=== PATIENT | male | born 1930 | race Caucasian/White ===

== ENCOUNTER 2016-07-10 00:32 | Observation (INO) | payer BC ==
[2016-07-10 00:45] VITALS: BMI 24.2
[2016-07-10] MEDS ORDERED: SUCRALFATE 1 GM TABLET (FP) PO ONE (01:04)
[2016-07-10] MEDS ORDERED: PANTOPRAZOLE SODIUM 40 MG in SODIUM CHLORIDE 100 ML IVPB ONE (01:04)
[2016-07-10] MEDS ORDERED: MAG HYDROX/AL HYDROX/SIMETH 30 ML UNIT-DOSE CUP PO ONE (01:04)
[2016-07-10] MEDS ORDERED: ASPIRIN 81 MG CHEWABLE TABLETS PO ONE (01:05)
--- NOTE | 2016-07-10 01:20 | PDOC ---
History of Present Illness - General History Source: Patient, Old Records Exam Limitations: No Limitations - History of Present Illness Initial Comments: 07/10/16 01:35 The patient is an 85 year old male, with a significant past medical history of HTN, hyperlipidemia, GERD, TIA, BPH, spinal stenosis, Parkinsons disease, mild dementia and recent falls, who presents to the emergency department with chest discomfort since approximately 11PM tonight. The patient states that he went to bed as usual but woke up around 11PM with what he describes as burning sensation in his chest. The patient reports taking Tums which usually gives him relief. However, when his symptoms did not subside he decided to visit the ED for evaluation. The patient denies fever, chills or shortness of breath. The patient denies nausea, vomiting or diarrhea. Allergies: Penicillin. Past Surgical History: Cholecystectomy, Hernia Repair. Social History: Former smoker (quit 15 years ago). Denies alcohol or drug use. PCP: Dr. Be <Lana Salas - Last Filed: 07/10/16 02:16> - General History Source: Patient, Old Records Exam Limitations: No Limitations <Carmelo Veronica - Last Filed: 07/10/16 11:54> - General Chief Complaint: Chest Pain Stated Complaint: HEARTBURN Time Seen by Provider: 07/10/16 00:35 Past History <Lana Salas - Last Filed: 07/10/16 02:16> - Past Medical History Anemia: No Asthma: No Cancer: No Cardiac Disorders: No CVA: No COPD: No CHF: No Dementia: No Diabetes: No GI Disorders: Yes (GERD) Disorders: Yes (BPH) HTN: Yes Hypercholesterolemia: No Liver Disease: No Seizures: No Thyroid Disease: No - Surgical History Abdominal Surgery: Yes (HERNIA) Appendectomy: No Cardiac Surgery: No Cholecystectomy: Yes Lung Surgery: No Neurologic Surgery: No Orthopedic Surgery: No - Psycho/Social/Smoking Cessation Hx Anxiety: No Suicidal Ideation: No Smoking History: Never smoked Have you smoked in the past 12 months: No If you are a former smoker, when did you quit?: 15 years ago Information on smoking cessation initiated: No Hx Alcohol Use: No Drug/Substance Use Hx: No Substance Use Type: None <Carmelo Veronica - Last Filed: 07/10/16 11:54> - Past Medical History Allergies/Adverse Reactions: Allergies Allergy/AdvReac Type Severity Reaction Status Date / Time Penicillins Allergy Severe Swelling Verified 07/10/16 00:43 Home Medications: Ambulatory Orders Ascorbate Calcium [Vitamin C] 1 mg PO DAILY 01/03/15 Ranitidine [Zantac -] 1 tab PO BID 01/03/15 Tamsulosin HCl 0.4 mg PO DAILY 01/03/15 Terazosin HCl 5 mg PO DAILY 01/03/15 Valsartan 160 mg PO DAILY 09/23/15 Cholecalciferol (Vitamin D3) [Vitamin D -] 0 unit PO WEEKLY 05/05/16 Acetaminophen [Tylenol .Regular Strength -] 650 mg PO Q6H PRN #0 tablet Carbidopa/Levodopa 25 [Sinemet 25/ -] 1 each PO TID #90 tablet 05/07/16 Review of Systems - Review of Systems Able to Perform ROS?: Yes Comments:: 07/10/16 01:33 GENERAL/CONSTITUTIONAL: No fever or chills. No weakness. HEAD, EYES, EARS, NOSE AND THROAT: No change in vision. No ear pain or discharge. No sore throat. CARDIOVASCULAR: +Chest discomfort. No shortness of breath. RESPIRATORY: No cough, wheezing, or hemoptysis. GASTROINTESTINAL: No nausea, vomiting, diarrhea or constipation. GENITOURINARY: No dysuria, frequency, or change in urination. MUSCULOSKELETAL: No joint or muscle swelling or pain. No neck or back pain. SKIN: No rash. NEUROLOGIC: No headache, vertigo, loss of consciousness, or change in strength/ sensation. ENDOCRINE: No increased thirst. No abnormal weight change. HEMATOLOGIC/LYMPHATIC: No anemia, easy bleeding, or history of blood clots. ALLERGIC/IMMUNOLOGIC: No hives or skin allergy. <Lana Salas - Last Filed: 07/10/16 02:16> *Physical Exam - Vital Signs Last Vital Signs Temp Pulse Resp BP Pulse Ox 97.2 F L 87 18 146/53 95 07/10/16 00:43 07/10/16 00:43 07/10/16 00:43 07/10/16 00:43 07/10/16 00:43 - Physical Exam Comments: 07/10/16 01:22 GENERAL: Awake, alert, and fully oriented, in no acute distress. HEAD: No signs of trauma. EYES: PERRLA, EOMI, sclera anicteric, conjunctiva clear. ENT: Auricles normal inspection, hearing grossly normal, nares patent, oropharynx clear without exudates. Moist mucosa. NECK: Normal ROM, supple, no lymphadenopathy, JVD, or masses. LUNGS: Breath sounds equal, clear to auscultation bilaterally. No wheezes, and no crackles. HEART: Regular rate and rhythm, normal S1 and S2, no murmurs, rubs or gallops. ABDOMEN: Soft, nontender, normoactive bowel sounds. No guarding, no rebound. No masses. EXTREMITIES: Normal range of motion, no edema. No clubbing or cyanosis. No cords, erythema, or tenderness. NEUROLOGICAL: Cranial nerves II through XII intact. Normal speech, gait is deferred. SKIN: Warm, dry, normal turgor, no rashes or lesions noted. <Lana Salas - Last Filed: 07/10/16 02:16> - Vital Signs Last Vital Signs Temp Pulse Resp BP Pulse Ox 97.2 F L 87 18 146/53 95 07/10/16 00:43 07/10/16 00:43 07/10/16 00:43 07/10/16 00:43 07/10/16 00:43 <Carmelo Veronica - Last Filed: 07/10/16 11:54> Heart Score/ECG Review - History History: Moderately suspicious - Electrocardiogram EKG: Non specific repolarization disturbance - Age Age: >/= 65 - Risk Factors Based on the list above the patient has:: >/=3 risk factors or Hx atherosclerotic disease - Troponin Troponin: </= normal limit - Score Heart Score - Total: 6 #1 07/10/16 11:[address] changes on the ECG. No acute ischemic changes. <Carmelo Veronica - Last Filed: 07/10/16 11:54> ED Treatment Course - LABORATORY CBC & Chemistry Diagram: 07/10/16 01:15 07/10/16 01:15 <Lana Salas - Last Filed: 07/10/16 02:16> - LABORATORY CBC & Chemistry Diagram: 07/10/16 01:15 07/10/16 01:15 - RADIOLOGY Radiology Studies Ordered: Category Date Time Status CHEST X-RAY PORTABLE* [RAD] Stat Radiology 07/10/16 00:56 Ordered <Carmelo Veronica - Last Filed: 07/10/16 11:54> Medical Decision Making - Medical Decision Making 07/10/16 02:[address] Ashley Zapata at 02:09. Referred to answering, awaiting callback. Dr. Zapata returned call at 02:16, case discussed. <Lana Salas - Last Filed: 07/10/16 02:16> - Medical Decision Making 07/10/16 01:20 A portion of this note was documented by scribe services under my direction. I have reviewed the details of the note, within reason, and agree with the documentation with the following case summary and management plan written by me. Patient treated in the ED. Nursing notes are reviewed and incorporated into the medical decision-making. Vital signs reviewed. Peripheral IV access obtained by the nurse, laboratory studies are drawn and sent, reviewed and interpreted by myself. 85 year old male with past medical history of acid reflux, hypertension, TIA, BPH, Parkinson's, dementia presents with chest discomfort. Patient reports that he ate a heavy dinner. Went to bed around 10:50 PM, patient developed an woke up with chest burning-like sensation but no sepsis shortness of breath. Denies nausea or vomiting. He reports that he typically reassess reflux but typically resolved with Tums and Zantac. However, it did not resolve it did not improve. He was concerned for cardiac condition and came to the ED. I agree, we should rule out myocardial infarction and acute coronary syndrome. We'll give an aspirin but trial GERD medications. Chest x-ray, EKG, labs include troponin and admit the patient to the hospital for further lotion. 07/10/16 02:18 CBC, BMP 07/10/16 01:15 07/10/16 01:15 CMP Sodium 134 mmol/L (136-145) L 07/10/16 01:15 Potassium 4.4 mmol/L (3.5-5.1) 07/10/16 01:15 Chloride 99 mmol/L (98-107) 07/10/16 01:15 Carbon Dioxide 25 mmol/L (21-32) 07/10/16 01:15 Anion Gap 10 (8-16) 07/10/16 01:15 BUN 14 mg/dL (7-18) 07/10/16 01:15 Creatinine 1.1 mg/dL (0.7-1.3) D 07/10/16 01:15 Creat Clearance w eGFR > 60 (>60) 07/10/16 01:15 Random Glucose 154 mg/dL (74-106) H D 07/10/16 01:15 Calcium 8.2 mg/dL (8.5-10.1) L 07/10/16 01:15 Magnesium 2.0 mg/dL (1.8-2.4) 07/10/16 01:15 Total Bilirubin 0.3 mg/dL (0.2-1.0) D 07/10/16 01:15 AST 22 U/L (15-37) D 07/10/16 01:15 ALT 15 U/L (12-78) D 07/10/16 01:15 Alkaline Phosphatase 75 U/L (45-117) 07/10/16 01:15 Creatine Kinase 245 IU/L (39-308) D 07/10/16 01:15 Troponin I < 0.02 ng/ml (0.00-0.05) 07/10/16 01:15 B-Natriuretic Peptide 164.72 pg/ml (5-450) 07/10/16 01:15 Total Protein 5.9 g/dl (6.4-8.2) L 07/10/16 01:15 Albumin 3.1 g/dl (3.4-5.0) L 07/10/16 01:15 Lipase 55 U/L (73-393) L 07/10/16 01:15 Trop negative. Chest rxay pending. Case discussed with Dr. Zapata, who accepts the patient for tele obs. Requests Dr. Juárez for cards. Case discussed in detail with admitting physician including history, physical exam and ancillary studies. Admitting physician has assumed care for the patient, will follow all pending diagnostics and will complete the evaluation and treatment. <Carmelo Veronica - Last Filed: 07/10/16 11:54> *DC/Admit/Observation/Transfer - Attestations Scribe Attestion: 07/10/16 01:21 Documentation prepared by Lana Salas, acting as medical affairs specialist for Carmelo Veronica MD. <Lana Salas - Last Filed: 07/10/16 02:16> - Discharge Dispostion Admit: Yes <Carmelo Veronica - Last Filed: 07/10/16 11:54> Diagnosis at time of Disposition: Chest pain Qualifiers: Chest pain type: unspecified Qualified Code(s): R07.9 - Chest pain, unspecified
[2016-07-10 01:29] LABS: BASOPHIL 0.7 % (0-2.0); EOSINOPHIL 3.5 % (0-4.5); MCH 30.3 pg (25.7-33.7); MCHC 33.7 g/dl (32.0-35.9); MEAN CELL VOLUME 89.8 fl (80-96); MEAN PLT VOLUME 8.5 fl (7.5-11.1); NEUTROPHILS 65.9 % (42.8-82.8); PLATELET COUNT 205 K/MM3 (134-434); RDW 15.1 % (11.9-15.9); WHITE BLOOD COUNT 7.7 K/mm3 (4.0-10.0)
[2016-07-10] MEDS ORDERED: SUCRALFATE 1 GM TABLET (FP) ONE (01:31)
[2016-07-10] MEDS ORDERED: PANTOPRAZOLE SODIUM 100 ML IVPB ONE ×2 (01:31→01:32)
[2016-07-10] MEDS ORDERED: ASPIRIN 81 MG CHEWABLE TABLETS ONE (01:31)
[2016-07-10] MEDS ORDERED: MAG HYDROX/AL HYDROX/SIMETH 30 ML UNIT-DOSE CUP ONE (01:31)
[2016-07-10 01:46] LABS: INR 1.01 (0.82-1.09); PROTHROMBIN TIME (PATIENT) 11.1 SEC (9.98-11.88)
[2016-07-10 01:49] LABS: ACTIVATED PTT 27.9 SECONDS (26.9-34.4)
[2016-07-10 01:55] LABS: ALBUMIN 3.1 g/dl (3.4-5.0); ANION GAP 10 (8-16); BILIRUBIN,TOTAL 0.3 mg/dL (0.2-1.0); CALCIUM 8.2 mg/dL (8.5-10.1); CO2 25 mmol/L (21-32); CREATININE 1.1 mg/dL (0.7-1.3); GLUCOSE,RANDOM 154 mg/dL (74-106); SGOT/AST 22 U/L (15-37); SGPT/ALT 15 U/L (12-78); TOT PROT 5.9 g/dl (6.4-8.2)
[2016-07-10 01:59] LABS: ALK PHOS 75 U/L (45-117); TROPONIN I < 0.02 ng/ml (0.00-0.05)
[2016-07-10 09:03] LABS: TROPONIN I < 0.02 ng/ml (0.00-0.05)
[2016-07-10] MEDS ORDERED: ACETAMINOPHEN 325 MG TABLET (FP) PO PRN (11:08)
--- NOTE | 2016-07-10 11:52 | CONSULT ---
Consult Consult Specialty:: Cardiology (Dr. Juárez) Reason for Consultation:: Chest pain - History of Present Illness Chief Complaint: Chest pain History of Present Illness: 85 year old male with known history of acid reflux. Has hypertension, TIA (with HANNAH carotid stenosis), BPH, Parkinson's dementia. Now presents with chest discomfort. Patient reports that he ate a "heavy dinner". Went to bed around 10:50 PM (2 hours after eating) and developed chest burning located in mid sternal area. Denies nausea or vomiting. No prior h/o exertional symptoms of shortness of breath or chest pain. He reports that he typically reassess reflux but typically resolved with Tums and Zantac. However, he states that he did not take this because of concern for developing an "ulcer". He has a h/o spinal stenosis Was seen and evaluated by Dr. Juárez in 04/2016 after fall. 09/2015 carotid u/s (mod atherosclerotic disease 60-79% HANNAH. Had inpt eval by vascular surgery, not thought to need intervention. 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 Cardio/Vascular: Yes: HTN, Other (peripheral arterial disease) Renal/: Yes: BPH - Alcohol/Substance Use Hx Alcohol Use: No History of Substance Use: reports: None - Smoking History Smoking history: Never smoked Have you smoked in the past 12 months: No If you are a former smoker, when did you quit?: 15 years ago Home Medications - Allergies Allergies/Adverse Reactions: Allergies Allergy/AdvReac Type Severity Reaction Status Date / Time Penicillins Allergy Severe Swelling Verified 07/10/16 00:43 - Home Medications Home Medications: Ambulatory Orders Ascorbate Calcium [Vitamin C] 1 mg PO DAILY 01/03/15 Ranitidine [Zantac -] 1 tab PO BID 01/03/15 Tamsulosin HCl 0.4 mg PO DAILY 01/03/15 Terazosin HCl 5 mg PO DAILY 01/03/15 Valsartan 160 mg PO DAILY 09/23/15 Cholecalciferol (Vitamin D3) [Vitamin D -] 0 unit PO WEEKLY 05/05/16 Acetaminophen [Tylenol .Regular Strength -] 650 mg PO Q6H PRN #0 tablet Carbidopa/Levodopa 25/100 [Sinemet 25/100 -] 1 each PO TID #90 tablet 05/07/16 Family Disease History - Family Disease History Family History: Unremarkable Review of Systems - Review of Systems Constitutional: reports: No Symptoms Eyes: reports: No Symptoms HENT: reports: No Symptoms Neck: reports: No Symptoms Cardiovascular: reports: Chest Pain Respiratory: reports: No Symptoms Gastrointestinal: reports: No Symptoms Genitourinary: reports: Frequency Musculoskeletal: reports: No Symptoms Integumentary: reports: No Symptoms Neurological: reports: Unsteady Gait Endocrine: reports: No Symptoms Physical Exam Vital Signs: Vital Signs Temperature 97.1 F L 07/10/16 06:44 Pulse Rate 72 07/10/16 06:44 Respiratory Rate 18 07/10/16 10:00 Blood Pressure 138/70 07/10/16 06:44 O2 Sat by Pulse Oximetry (%) 95 07/10/16 10:00 Constitutional: Yes: Well Nourished, No Distress Eyes: Yes: WNL HENT: Yes: WNL Neck: Yes: WNL Cardiovascular: Yes: Regular Rate and Rhythm Respiratory: Yes: WNL Gastrointestinal: Yes: WNL Extremities: Yes: WNL Edema: No Imaging - Results EKG: Image Reviewed (Tele: 07/10 at 08:06 HR to 120. ? Afib) Assessment/Plan 87 yo male with CV risk factors of HTN, HPL and (+) tobacco with Rt internal carotid stenosis. 1) Chest pain Now admitted with atypical chest pain. History sounds non-cardiac as he denies any exertional component and occured after eating large meal. In addition, he did not take his antacid (which he usually does). He had normal LV function on echo done in 04/2016 Cardiac enzymes are negative x 2 and ECG shows no ischemic changes Would resume his antacid regimen and consider GI evaluation Tele this AM showed rapid rate to 120s and looked like Afib. Would not anticoagulate him until GI eval done. Would start ASA 81mg daily 2) HTN Continue the valsartan for BP controll 3) Cartoid artery stenosis Continue ASA 81mg daily (which he should be on for the Rt KAM. I would also recommend he start Atorva 20mg daily for Carotid stenosis
[2016-07-10] MEDS: VALSARTAN 160 MG TABLET (UD) PO SCH (12:03)
[2016-07-10] MEDS: TAMSULOSIN HCL 0.4 MG CAP.ER.24H (FP) PO SCH (12:03)
[2016-07-10] MEDS: TERAZOSIN HCL 5 MG CAPSULE PO SCH ×2 (12:04→21:57)
--- NOTE | 2016-07-10 12:48 | HP ---
Admitting History and Physical - Primary Care Physician PCP: Antwon Be - Admission Chief Complaint: chest pain History of Present Illness: 85 year old male with past medical history of acid reflux, hypertension, TIA, BPH, Parkinson's, dementia presents with chest discomfort. Patient reports that he ate a heavy dinner. Went to bed around 10:50 PM, patient developed an woke up with chest burning-like sensation but no sepsis shortness of breath. Denies nausea or vomiting. He reports that he typically reassess reflux but typically resolved with Tums and Zantac. However, it did not resolve it did not improve. He was concerned for cardiac condition and came to the ED. 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 Cardiovascular: Yes: HTN, Other (peripheral arterial disease) Renal/: Yes: BPH - Smoking History Smoking history: Never smoked Have you smoked in the past 12 months: No If you are a former smoker, when did you quit?: 15 years ago - Alcohol/Substance Use Hx Alcohol Use: No History of Substance Use: reports: None Home Medications - Allergies Allergies/Adverse Reactions: Allergies Allergy/AdvReac Type Severity Reaction Status Date / Time Penicillins Allergy Severe Swelling Verified 07/10/16 00:43 - Home Medications Home Medications: Ambulatory Orders Ascorbate Calcium [Vitamin C] 1 mg PO DAILY 01/03/15 Ranitidine [Zantac -] 1 tab PO BID 01/03/15 Tamsulosin HCl 0.4 mg PO DAILY 01/03/15 Terazosin HCl 5 mg PO DAILY 01/03/15 Valsartan 160 mg PO DAILY 09/23/15 Cholecalciferol (Vitamin D3) [Vitamin D -] 0 unit PO WEEKLY 05/05/16 Acetaminophen [Tylenol .Regular Strength -] 650 mg PO Q6H PRN #0 tablet Carbidopa/Levodopa 25/100 [Sinemet 25/100 -] 1 each PO TID #90 tablet 05/07/16 Family Disease History - Family Disease History Family History: Unremarkable Review of Systems Unable to obtain ROS, reason: see [place] [employer] Physical Examination Vital Signs: Vital Signs Temperature 97.1 F L 02/25/17 06:44 Pulse Rate 72 07/10/16 06:44 Respiratory Rate 18 07/10/16 10:00 Blood Pressure 138/70 07/10/16 06:44 O2 Sat by Pulse Oximetry (%) 95 07/10/16 10:00 Constitutional: Yes: No Distress Eyes: Yes: Conjunctiva Clear Neck: Yes: Supple Cardiovascular: Yes: Regular Rate and Rhythm Respiratory: Yes: CTA Bilaterally Gastrointestinal: Yes: Normal Bowel Sounds, Soft Edema: No Neurological: Yes: Alert Psychiatric: Yes: Alert Imaging - Results Chest X-ray: Report Reviewed EKG: Report Reviewed Problem List - Problems (1) Chest pain Code(s): R07.9 - CHEST PAIN, UNSPECIFIED Qualifiers: Chest pain type: unspecified Qualified Code(s): R07.9 - Chest pain, unspecified (2) GERD (gastroesophageal reflux disease) Code(s): K21.9 - GASTRO-ESOPHAGEAL REFLUX DISEASE WITHOUT ESOPHAGITIS Qualifiers: Esophagitis presence: without esophagitis Qualified Code(s): K21.9 - Gastro-esophageal reflux disease without esophagitis (3) HTN (hypertension) Code(s): I10 - ESSENTIAL (PRIMARY) HYPERTENSION Qualifiers: Hypertension type: essential hypertension Qualified Code(s): I10 - Essential (primary) hypertension Assessment/Plan stable cardiology evaluation pending can be discharged today if cleared by cardiology Can do further work as out pt if indicated . will discuss with cardiology discussed with pts family/ pt-- agree with plan will follow
[2016-07-10] MEDS: CARBIDOPA/LEVODOPA 25/100 TABLET (FP) PO SCH ×2 (14:18→21:57)
[2016-07-10 16:13] LABS: TROPONIN I < 0.02 ng/ml (0.00-0.05)
--- NOTE | 2016-07-10 21:04 | EKG ---
Test Reason : Blood Pressure : / mmHG Vent. Rate : 087 BPM Atrial Rate : 087 BPM P-R Int : 178 ms QRS Dur : 090 ms QT Int : 344 ms P-R-T Axes : 050 -17 050 degrees QTc Int : 413 ms NORMAL SINUS RHYTHM NORMAL ECG WHEN COMPARED WITH ECG OF 05-MAY-2016 11:52, NO SIGNIFICANT CHANGE WAS FOUND Confirmed by JUANITA SÁNCHEZ MD ([id number]) on 07/10/2016 9:04:03 PM Referred By: Confirmed By:JUANITA SÁNCHEZ MD
[2016-07-10] MEDS ORDERED: PT OWN MED DRAWER 7, Y5N ONE (21:42)
[2016-07-10] MEDS: RANITIDINE HCL 150 MG TABLET (FP) PO SCH (21:57)
[2016-07-10] MEDS: ATORVASTATIN CA 20 MG TABLET (FP) PO SCH (21:57)
[2016-07-11] MEDS: CARBIDOPA/LEVODOPA 25/100 TABLET (FP) PO SCH ×3 (06:19→21:13)
[2016-07-11] MEDS: ASPIRIN COATED 81 MG TABLET.EC PO SCH (10:05)
[2016-07-11] MEDS: VALSARTAN 160 MG TABLET (UD) PO SCH (10:05)
[2016-07-11] MEDS: RANITIDINE HCL 150 MG TABLET (FP) PO SCH ×2 (10:05→21:13)
[2016-07-11] MEDS: TAMSULOSIN HCL 0.4 MG CAP.ER.24H (FP) PO SCH (10:06)
[2016-07-11] MEDS ORDERED: PT OWN MED DRAWER 7, Y5N ONE ×2 (10:07→10:08)
[2016-07-11] MEDS: TERAZOSIN HCL 5 MG CAPSULE PO SCH (10:09)
--- NOTE | 2016-07-11 11:20 | PN ---
Progress Note, Physician History of Present Illness: No complaints this AM Tele reviewed with no AFib, SR at 60s No chest pain Wants to go home but feels he will have trouble taking care of himself at home - Current Medication List Current Medications: Active Medications Acetaminophen (Tylenol -) 650 mg PO Q6H PRN PRN Reason: FEVER OR PAIN Aspirin (Ecotrin -) 81 mg PO DAILY [facility] Last Admin: 07/11/16 10:05 Dose: 81 mg Atorvastatin Calcium (Lipitor -) 20 mg PO HS [facility] Last Admin: 07/10/16 21:57 Dose: 20 mg Carbidopa/Levodopa (Sinemet /100 -) 1.5 each PO TID [facility] Last Admin: 07/11/16 06:19 Dose: 1.5 each Ranitidine HCl (Zantac -) 150 mg PO BID [facility] Last Admin: 07/11/16 10:05 Dose: 150 mg Tamsulosin HCl (Flomax -) 0.4 mg PO DAILY [facility] Last Admin: 07/11/16 10:06 Dose: 0.4 mg Terazosin HCl (Hytrin -) 5 mg PO DAILY [facility] Last Admin: 07/11/16 10:09 Dose: 5 mg Valsartan (Diovan -) 160 mg PO DAILY [facility] Last Admin: 07/11/16 10:05 Dose: 160 mg - Objective Vital Signs: Vital Signs Temperature 97.4 F L 07/11/16 08:16 Pulse Rate 76 07/11/16 08:16 Respiratory Rate 20 07/11/16 08:37 Blood Pressure 135/53 07/11/16 08:16 O2 Sat by Pulse Oximetry (%) 95 07/11/16 08:37 Constitutional: Yes: Well Nourished, No Distress Eyes: Yes: WNL HENT: Yes: WNL Neck: Yes: WNL, Supple, Trachea Midline Cardiovascular: Yes: WNL, Regular Rate and Rhythm Respiratory: Yes: CTA Bilaterally Gastrointestinal: Yes: WNL, Normal Bowel Sounds Musculoskeletal: Yes: WNL Extremities: Yes: WNL Edema: No Labs: INR, PTT INR 1.01 (0.82-1.09) 07/10/16 01:15 Assessment/Plan 87 yo male with CV risk factors of HTN, HPL and (+) tobacco with Rt internal carotid stenosis. 1) Chest pain Now admitted with atypical chest pain. History sounds non-cardiac as he denies any exertional component and occured after eating large meal. In addition, he did not take his antacid (which he usually does). He had normal LV function on echo done in 04/2016 Cardiac enzymes are negative x 2 and ECG shows no ischemic changes Would resume his antacid regimen and consider GI evaluation Tele this yesterday showed transient period of rapid rate to 120s and looked like Afib. Would not anticoagulate him until GI eval done. Would start ASA 81mg daily Continue tele - no afib overnight 07/10 2) HTN Continue the valsartan for BP controll 3) Cartoid artery stenosis Continue ASA 81mg daily (which he should be on for the Rt KAM). Continue Atorva 20mg daily for Carotid stenosis Dispo: Patient states he may need help at home
--- NOTE | 2016-07-11 14:04 | PN ---
Progress Note (short form) - Note Progress Note: Sitting in chair wants to go home . family at bedside cardiology consult noted/ appreciated denies cp denies abd pain Vital Signs Temp 97.4 F L 07/11/16 08:16 Pulse 76 07/11/16 08:16 Resp 20 07/11/16 08:37 BP 135/53 07/11/16 08:16 Pulse Ox 95 07/11/16 08:37 Intake & Output 07/10/16 07/11/16 07/11/16 23:59 11:59 23:59 Intake Total 350 350 400 Output Total 400 Balance 350 -50 400 Intake: Oral 350 350 400 Output: Urine 400 Void 400 Other: Voiding Method Toilet Toilet Toilet # Unmeasured Voids Void 1 3 Bowel Movement Yes Yes Yes Active Medications Acetaminophen (Tylenol -) 650 mg PO Q6H PRN PRN Reason: FEVER OR PAIN Aspirin (Ecotrin -) 81 mg PO DAILY [facility] Last Admin: 07/11/16 10:05 Dose: 81 mg Atorvastatin Calcium (Lipitor -) 20 mg PO [facility] Last Admin: 07/10/16 21:57 Dose: 20 mg Carbidopa/Levodopa (Sinemet 25/100 -) 1.5 each PO TID [facility] Last Admin: 07/11/16 06:19 Dose: 1.5 each Ranitidine HCl (Zantac -) 150 mg PO BID [facility] Last Admin: 07/11/16 10:05 Dose: 150 mg Tamsulosin HCl (Flomax -) 0.4 mg PO DAILY [facility] Last Admin: 07/11/16 10:06 Dose: 0.4 mg Terazosin HCl (Hytrin -) 5 mg PO DAILY [facility] Last Admin: 07/11/16 10:09 Dose: 5 mg Valsartan (Diovan -) 160 mg PO DAILY [facility] Last Admin: 07/11/16 10:05 Dose: 160 mg CBC, BMP 07/10/16 01:15 07/10/16 01:15 Physical Examination Constitutional: Yes: No Distress Eyes: Yes: Conjunctiva Clear Neck: Yes: Supple Cardiovascular: Yes: Regular Rate and Rhythm Respiratory: Yes: CTA Bilaterally Gastrointestinal: Yes: Normal Bowel Sounds, Soft Edema: No Neurological: Yes: Alert Psychiatric: Yes: Alert Assessment/Plan episode of afib ? monitor on tele gi consult as suggested by cardiology will follow discussed with pt / family Problem List - Problems (1) Chest pain Code(s): R07.9 - CHEST PAIN, UNSPECIFIED Qualifiers: Chest pain type: unspecified Qualified Code(s): R07.9 - Chest pain, unspecified (2) GERD (gastroesophageal reflux disease) Code(s): K21.9 - GASTRO-ESOPHAGEAL REFLUX DISEASE WITHOUT ESOPHAGITIS Qualifiers: Esophagitis presence: without esophagitis Qualified Code(s): K21.9 - Gastro-esophageal reflux disease without esophagitis (3) HTN (hypertension) Code(s): I10 - ESSENTIAL (PRIMARY) HYPERTENSION Qualifiers: Hypertension type: essential hypertension Qualified Code(s): I10 - Essential (primary) hypertension
[2016-07-11 14:53] LABS: BASOPHIL 0.9 % (0-2.0); EOSINOPHIL 2.7 % (0-4.5); MCH 30.4 pg (25.7-33.7); MEAN CELL VOLUME 89.4 fl (80-96); MEAN PLT VOLUME 8.4 fl (7.5-11.1); NEUTROPHILS 68.5 % (42.8-82.8); PLATELET COUNT 209 K/MM3 (134-434)
[2016-07-11 15:09] LABS: ALBUMIN 3.4 g/dl (3.4-5.0); ANION GAP 6 (8-16); BILIRUBIN,TOTAL 0.3 mg/dL (0.2-1.0); CALCIUM 8.5 mg/dL (8.5-10.1); CO2 29 mmol/L (21-32); CREATININE 0.9 mg/dL (0.7-1.3); GLUCOSE,RANDOM 121 mg/dL (74-106); SGOT/AST 19 U/L (15-37); SGPT/ALT 17 U/L (12-78); TOT PROT 6.3 g/dl (6.4-8.2)
[2016-07-11 15:10] LABS: ALK PHOS 81 U/L (45-117)
[2016-07-11] MEDS: ATORVASTATIN CA 20 MG TABLET (FP) PO SCH (21:13)
[2016-07-12] MEDS: CARBIDOPA/LEVODOPA 25/100 TABLET (FP) PO SCH ×2 (05:23→15:09)
--- NOTE | 2016-07-12 09:08 | PN ---
Progress Note, Physician Chief Complaint: cp History of Present Illness: no more cp; no palpitations, sob, presyncope - Current Medication List Current Medications: Active Medications Acetaminophen (Tylenol -) 650 mg PO Q6H PRN PRN Reason: FEVER OR PAIN Aspirin (Ecotrin -) 81 mg PO DAILY COUNTS INCLUDE 234 BEDS AT THE [facility] Last Admin: 07/11/16 10:05 Dose: 81 mg Atorvastatin Calcium (Lipitor -) 20 mg PO HS COUNTS INCLUDE 234 BEDS AT THE [facility] Last Admin: 07/11/16 21:13 Dose: 20 mg Carbidopa/Levodopa (Sinemet 25/100 -) 1.5 each PO TID COUNTS INCLUDE 234 BEDS AT THE [facility] Last Admin: 07/12/16 05:23 Dose: 1.5 each Ranitidine HCl (Zantac -) 150 mg PO BID COUNTS INCLUDE 234 BEDS AT THE [facility] Last Admin: 07/11/16 21:13 Dose: 150 mg Tamsulosin HCl (Flomax -) 0.4 mg PO DAILY COUNTS INCLUDE 234 BEDS AT THE [facility] Last Admin: 07/11/16 10:06 Dose: 0.4 mg Terazosin HCl (Hytrin -) 5 mg PO DAILY COUNTS INCLUDE 234 BEDS AT THE [facility] Last Admin: 07/11/16 10:09 Dose: 5 mg Valsartan (Diovan -) 160 mg PO DAILY COUNTS INCLUDE 234 BEDS AT THE [facility] Last Admin: 07/11/16 10:05 Dose: 160 mg - Objective Vital Signs: Vital Signs Temperature 97.5 F L 07/12/16 07:56 Pulse Rate 89 07/12/16 07:56 Respiratory Rate 18 07/12/16 08:00 Blood Pressure 140/72 07/12/16 07:56 O2 Sat by Pulse Oximetry (%) 98 07/12/16 08:00 Constitutional: Yes: No Distress, Calm Eyes: No: Sclera Icterus HENT: No: Nasal Congestion Cardiovascular: Yes: Regular Rate and Rhythm, S1, S2, Other (PMI non diplaced). No: Gallop, Murmur Respiratory: Yes: CTA Bilaterally. No: Accessory Muscle Use, Rales, Wheezes Gastrointestinal: Yes: Normal Bowel Sounds, Soft. No: Tenderness Musculoskeletal: Yes: Other (No kyphosis) Extremities: No: Cold Edema: No Integumentary: No: Jaundice Neurological: Yes: Alert, Oriented (x3) Psychiatric: No: Agitated Labs: CBC, BMP 07/11/16 14:15 07/11/16 14:15 INR, PTT INR 1.01 (0.82-1.09) 07/10/16 01:15 - ....Imaging EKG: Other (tele: NSR, brief (few seconds) episodes of ? PAT vs AFL/PAF) Assessment/Plan 87 yo male with CV risk factors of HTN, HPL and (+) tobacco with Rt internal carotid stenosis. Chest pain, atypical -suspect GI etiology -History sounds non-cardiac as he denies any exertional component and ocurred after eating large meal, in setting of missing his usual antacid med dose -pt tells me these sx's were qualitatively similar to what he has had over the years (dating back to many yrs ago when pmd rx'd ranitidine), including feeling of burning rising up and sour taste in mouth--only more severe and with assctd diaphoresis--highly unlikely to be angina -He had normal LV function on echo done in 04/2016 -Cardiac enzymes are negative x 2 and ECG shows no ischemic changes -Would resume his antacid regimen -given no high risk clinical markers, pt may be monitored as outpt--i d/w'd he and his at length the importance of outpt cardio f/u, and answered all of his quesions, including about his difficulty transporting himself to appts due to his parkinson's--they both verbalize understanding of importance and states she will arrange her paratransit for him as well -asa, statin as doing ? Afib (paroxysmal) -transient episode of atrial arrhythmia with rapid HR to 120s on tele 07/10, per dr mccracken notes--suspicious for possibly PAF in his opinion -2 more episodes (few seconds each) cannot confidently distinguish b/w PAT, AFL and PAFib -will defer AC given uncertain dx and burden, and risks of bleeding may therefore be signif > benefits (e.g. 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
--- NOTE | 2016-07-12 09:20 | PN ---
Progress Note (short form) - Note Progress Note: Subjective Patient seen and examined. Sitting in chair. No complaints. Wants to go home. Denies chest pain or SOB or abdominal pain. Objective Last Vital Signs Temp Pulse Resp BP Pulse Ox 97.5 F L 89 18 140/72 98 07/12/16 07:56 07/12/16 07:56 07/12/16 08:00 07/12/16 07:56 07/12/16 08:00 CBC, BMP 07/11/16 14:15 07/11/16 14:15 Laboratory Results - last 24 hr 07/11/16 07/11/16 14:15 14:15 WBC 9.0 RBC 3.98 L Hgb 12.1 Hct 35.6 MCV 89.4 MCHC 34.0 RDW 15.0 Plt Count 209 MPV 8.4 Neutrophils % 68.5 Lymphocytes % 18.7 Monocytes % 9.2 Eosinophils % 2.7 Basophils % 0.9 Sodium 138 Potassium 4.5 Chloride 103 Carbon Dioxide 29 Anion Gap 6 L BUN 13 Creatinine 0.9 Creat Clearance w eGFR > 60 Random Glucose 121 H D Calcium 8.5 Total Bilirubin 0.3 AST 19 ALT 17 Alkaline Phosphatase 81 Total Protein 6.3 L Albumin 3.4 Physical Exam Constitutional: Yes: No Distress Eyes: Yes: Conjunctiva Clear Neck: Yes: Supple Cardiovascular: Yes: Regular Rate and Rhythm Respiratory: Yes: CTA Bilaterally Gastrointestinal: Yes: Normal Bowel Sounds, Soft Edema: No Neurological: Yes: Alert Psychiatric: Yes: Alert Assessment and Plan episode of afib ? Clinically stable Cardiology to follow I discussed the case with Dr. Osorio No active GI issues. Dr. Osorio to decide on anti-coagulation. Will follow. Documentation prepared by Randi Beebe, acting as a medical tech for Ashley Zapata MD. <Randi Beebe - Last Filed: 07/12/16 10:04> Problem List - Problems (1) Chest pain Code(s): R07.9 - CHEST PAIN, UNSPECIFIED Qualifiers: Chest pain type: unspecified Qualified Code(s): R07.9 - Chest pain, unspecified (2) GERD (gastroesophageal reflux disease) Code(s): K21.9 - GASTRO-ESOPHAGEAL REFLUX DISEASE WITHOUT ESOPHAGITIS Qualifiers: Esophagitis presence: without esophagitis Qualified Code(s): K21.9 - Gastro-esophageal reflux disease without esophagitis (3) HTN (hypertension) Code(s): I10 - ESSENTIAL (PRIMARY) HYPERTENSION Qualifiers: Hypertension type: essential hypertension Qualified Code(s): I10 - Essential (primary) hypertension <Ashley Zapata - Last Filed: 07/12/16 09:20>
[2016-07-12] MEDS: TAMSULOSIN HCL 0.4 MG CAP.ER.24H (FP) PO SCH (09:37)
[2016-07-12] MEDS: ASPIRIN COATED 81 MG TABLET.EC PO SCH (09:37)
[2016-07-12] MEDS: VALSARTAN 160 MG TABLET (UD) PO SCH (09:37)
[2016-07-12] MEDS: RANITIDINE HCL 150 MG TABLET (FP) PO SCH (09:37)
[2016-07-12] MEDS: TERAZOSIN HCL 5 MG CAPSULE PO SCH (09:38)
--- NOTE | 2016-07-12 13:06 | DS ---
Physical Examination Vital Signs: Vital Signs Temperature 97.5 F L 07/12/16 07:56 Pulse Rate 89 07/12/16 07:56 Respiratory Rate 18 07/12/16 08:00 Blood Pressure 140/72 07/12/16 07:56 O2 Sat by Pulse Oximetry (%) 98 07/12/16 08:00 Findings/Remarks: see today's progress note Labs: CBC, BMP 07/11/16 14:15 07/11/16 14:15 Discharge Summary Reason For Visit: CHEST PAIN Current Active Problems Chest pain (Acute) Hospital Course: patient admitted for atypical chest pain OR ruled out Cardiology followed Questionable episode of atrial fibrillation I have extensive talk with Dr. Benavidez today Plan is to discharge aspirin 81 mg daily Patient has no GI symptoms I discussed with Dr. Scott Pham also Patient advised to follow-up with him as outpatient The patient would like to go home today we will discharge Medications reconciled Condition: Stable - Instructions Referrals: Brett Lara DO [Staff Physician] - Fran Osorio MD [Staff Physician] - Antwon Be MD [Staff Physician] - Disposition: HOME - Home Medications Comprehensive Discharge Medication List: Ambulatory Orders Ranitidine [Zantac -] 1 tab PO BID 01/03/15 Tamsulosin HCl 0.4 mg PO DAILY 01/03/15 Terazosin HCl 5 mg PO DAILY 01/03/15 Valsartan 160 mg PO DAILY 09/23/15 Cholecalciferol (Vitamin D3) [Vitamin D -] 0 unit PO WEEKLY 05/05/16 Acetaminophen [Tylenol .Regular Strength -] 650 mg PO Q6H PRN #0 tablet Aspirin Coated [Ecotrin -] 81 mg PO DAILY #30 tablet.ec 07/12/16 Atorvastatin Ca [Lipitor] 20 mg PO HS #30 tablet 07/12/16 Carbidopa/Levodopa 25/100 [Sinemet 25/100 -] 1.5 each PO TID tablet 07/12/16 Valsartan [Diovan] 160 mg PO DAILY tablet 07/12/16
[2016-07-12 15:36] VITALS: BP 144/72; PULSE 82; TEMP 98.3
== END 2016-07-12 15:30 | disposition home or self-care (01) ==
LOC: JER 00:32 → JERBED 02:18 → J4W 05:05
PROVIDERS: ADMIT Internal Medicine; ATTEND Internal Medicine
DX: K21.9 Gastro-esophageal reflux disease without esophagitis (principal); R07.9 Chest pain, unspecified; I10 Essential (primary) hypertension; N40.0 Benign prostatic hyperplasia without lower urinary tract symptoms; G20 Parkinson's disease; F02.80 Dementia in other diseases classified elsewhere, unspecified severity, without behavioral disturbance, psychotic disturbance, mood disturbance, and anxiety; M48.00 Spinal stenosis, site unspecified; I73.9 Peripheral vascular disease, unspecified; I65.21 Occlusion and stenosis of right carotid artery
CPT/HCPCS: 36415; 71010-TC; 80053; 82550; 82553; 83690; 83735; 83880; 84484; 85025; 85610; 85730; 93005; 93010; 99284-25; G0378

== ENCOUNTER 2016-09-28 11:13 | Inpatient (IN) | payer BC, OTHER ==
[2016-09-28] MEDS ORDERED: ACETAMINOPHEN 325 MG TABLET (FP) PO ONE (12:13)
[2016-09-28] MEDS ORDERED: ACETAMINOPHEN 325 MG TABLET (FP) ONE (12:17)
--- NOTE | 2016-09-28 12:19 | PDOC ---
History of Present Illness - General Chief Complaint: Pain Stated Complaint: PAIN Time Seen by Provider: 09/28/16 11:38 History Source: Patient Exam Limitations: No Limitations - History of Present Illness Initial Comments: 09/28/16 12:14 86yM hx of htn, hl, gerd, tia, bph, spinal stenosis, parkinsons, mild dementia, ,presents with complaing of R hip pain. pt states he has been falling frequently , normally amulates with a walker, but sometimes ihs leg is weak and falls, he usually is able to slowly sit down when he falls, but yesterday, he fell on a smaller area, he was able to get up with assistance and was feeling ok without significant discomfort. pt states he bumped his head lightly on the wall, but had no headache, n/v, neck pain, back pain. th morning, when he woke up his pain was so severe in his right hip that he could not ambualte or stand up. pt states he has been feeling generally weaker recently, and falling more frequently but dnies any other complaints includes recent illness, fever/chills , cp, sob, cough, abd pain, n/v, dysuria, diarrhea, melena, bpr. PMD Haile Allergies: Penicillin. Past Surgical History: Cholecystectomy, Hernia Repair. Social History: Former smoker (quit 15 years ago). Denies alcohol or drug use. Past History - Past Medical History Allergies/Adverse Reactions: Allergies Allergy/AdvReac Type Severity Reaction Status Date / Time Penicillins Allergy Severe Swelling Verified 09/28/16 11:21 Home Medications: Ambulatory Orders Tamsulosin HCl 0.4 mg PO DAILY 01/03/15 Terazosin HCl 5 mg PO DAILY 01/03/15 Valsartan 320 mg PO DAILY 09/23/15 Acetaminophen [Tylenol .Regular Strength -] 650 mg PO Q6H PRN #0 tablet Aspirin Coated [Ecotrin -] 81 mg PO DAILY #30 tablet.ec 07/12/16 Carbidopa/Levodopa 25/100 [Sinemet 25/100 -] 1.5 each PO TID tablet 07/12/16 Bupropion HCl [Bupropion Xl] 150 mg PO DAILY 09/28/16 Pramipexole Di-HCl [Pramipexole ER] 0.125 mg PO HS 09/28/16 Anemia: No Asthma: No Cancer: No Cardiac Disorders: No CVA: No COPD: No CHF: No Dementia: No Diabetes: No GI Disorders: Yes (GERD) Disorders: Yes (BPH) HTN: Yes Hypercholesterolemia: No Liver Disease: No Seizures: No Thyroid Disease: No - Surgical History Abdominal Surgery: Yes (HERNIA) Appendectomy: No Cardiac Surgery: No Cholecystectomy: Yes Lung Surgery: No Neurologic Surgery: No Orthopedic Surgery: No - Immunization History Immunization Up to Date: No - Psycho/Social/Smoking Cessation Hx Anxiety: No Suicidal Ideation: No Smoking History: Former smoker Have you smoked in the past 12 months: No If you are a former smoker, when did you quit?: 15 years ago Information on smoking cessation initiated: No Hx Alcohol Use: No Drug/Substance Use Hx: No Substance Use Type: None Hx Substance Use Treatment: No Review of Systems - Review of Systems Able to Perform ROS?: Yes Comments:: 09/28/16 12:18 Constitutional - +fall, generalized weakness no reported Fever, Chills, HEENT: no reported vision changes, sore throat Respiratory: no reported cough, sob, hemoptysis Cardiac: no reported chest pain, palpitations, light headedness, leg swelling Abd/GI: no reported abd pain, nausea, vomiting, blood per rectum, melena, diarrhea : no reported dysuria, frequency, discharge Musculskelatal - +R hip pain no reported back pain, joint swelling skin - no reported bruising, erythema, rash neurological: no reported headache, numbness, focal weakness, tingling, ataxia, hematologic: no reported anemia, easy bruising, easy bleeding *Physical Exam - Vital Signs Last Vital Signs Temp Pulse Resp BP Pulse Ox 98.4 F 94 H 20 160/81 96 09/28/16 11:21 09/28/16 11:21 09/28/16 11:21 09/28/16 11:21 09/28/16 11:21 - Physical Exam Comments: 09/28/16 12:19 GENERAL: The patient is awake, alert, and fully oriented, Nontoxic - in no acute distress. HEAD: Normocephalic, atraumatic. EYES: extraocular movements intact, sclera anicteric, conjunctiva clear. ENT: Normal voice, Moist mucous membranes. NECK: Normal range of motion, supple LUNGS: Breath sounds equal, clear to auscultation bilaterally. No wheezes, no rhonchi, no rales. HEART: Regular rate and rhythm, normal S1 and S2 without murmur, rub or gallop. ABDOMEN: Soft, nontender, normoactive bowel sounds. No guarding, no rebound. . No CVA tenderness EXTREMITIES: neg log roll, +mild pain on active hip flexion, mild tenderness on palpation of R hip, n/v intact, no shortening or external rotation noted. NEUROLOGICAL: No facial assymetry, Normal speech, PSYCH: Normal mood, normal affect. SKIN: Warm, Dry, normal turgor, Back: No midline or paraspinal tenderness to the cervical, thoracic or lumbar spine Musculoskelatal: +mild crepitus on shoulder extension of L shoulder (chronic per patient), FROM of b/l elbows, wrist b/l. FROM of hips,knees, ankles Heart Score/ECG Review - ECG Impressions Comment:: 09/28/16 12:53 Twelve-lead EKG was performed and reviewed by me. There is normal sinus rhythm with a normal rate. rate of 92 The axis is normal. The intervals are normal. There is normal R wave progression There are no ST or T wave abnormalities. Impression: Normal twelve-lead EKG ED Treatment Course - LABORATORY CBC & Chemistry Diagram: 09/29/16 06:50 09/29/16 06:50 - RADIOLOGY Radiology Studies Ordered: Category Date Time Status HIP & PELVIS-RIGHT [RAD] Stat Radiology 09/28/16 12:13 Ordered Medical Decision Making - Medical Decision Making 09/28/16 12:23 86y M hx of parkinsons presenting sp fall with R hip pain yesterday - was able to ambulate yesterday after falling but pain was more severe this AM. no head injury/loc on exam the pt has some tenderness on R hip and pain to active hip flexion strain vs. fx will ck xray to ro fx will ck labs to r/o anemia, metabolic dernagement ua to r/o uti tylenol for analgesia will reassess 09/28/16 14:16 pts xray of pelvis significant for faint linear lucency through inferior pubic rami suspicous for nondisplaced fracture will admit for further management stable for med/surg 09/28/16 16:[address] mo agreed with admission Case discussed in detail with admitting physician including history, physical exam and ancillary studies. Admitting physician has assumed care for the patient, will follow all pending diagnostics and will complete the evaluation and treatment. *DC/Admit/Observation/Transfer Diagnosis at time of Disposition: Closed fracture of single pubic ramus of pelvis Qualifiers: Encounter type: initial encounter Laterality: left Qualified Code(s): S32.502A - Unspecified fracture of left pubis, initial encounter for closed fracture - Discharge Dispostion Admit: Yes
[2016-09-28 12:36] LABS: BASOPHIL 0.3 % (0-2.0); EOSINOPHIL 0.1 % (0-4.5); MCH 29.6 pg (25.7-33.7); MCHC 33.4 g/dl (32.0-35.9); MEAN CELL VOLUME 88.4 fl (80-96); MEAN PLT VOLUME 8.4 fl (7.5-11.1); NEUTROPHILS 85.1 % (42.8-82.8); PLATELET COUNT 213 K/MM3 (134-434); RDW 14.2 % (11.9-15.9); WHITE BLOOD COUNT 14.2 K/mm3 (4.0-10.0)
[2016-09-28 14:32] LABS: URINE APPEARANCE CLEAR; URINE BILIRUBIN NEGATIVE (NEGATIVE); URINE BLOOD NEGATIVE (NEGATIVE); URINE COLOR YELLOW; URINE GLUCOSE (UA) NEGATIVE (NEGATIVE); URINE KETONE TRACE (NEGATIVE); URINE LEUK ESTERASE NEGATIVE (NEGATIVE); URINE NITRITE NEGATIVE (NEGATIVE); URINE PROTEIN NEGATIVE (NEGATIVE); URINE UROBILINOGEN NEGATIVE E.U./dl (0.2-1.0)
[2016-09-28 14:51] LABS: ALBUMIN 3.3 g/dl (3.4-5.0); ALK PHOS 93 U/L (45-117); ANION GAP 14 (8-16); BILIRUBIN,TOTAL 0.9 mg/dL (0.2-1.0); CALCIUM 8.6 mg/dL (8.5-10.1); CO2 23 mmol/L (21-32); COCKROFT - GAULT 65.51; CREATININE 0.8 mg/dL (0.7-1.3); GLUCOSE,RANDOM 118 mg/dL (74-106); SGOT/AST 47 U/L (15-37); SGPT/ALT 25 U/L (12-78); TOT PROT 6.4 g/dl (6.4-8.2)
[2016-09-28 15:53] VITALS: BMI 23.3
[2016-09-28] MEDS ORDERED: ACETAMINOPHEN 1000 MG/100 ML VIAL (NON FORMULARY) IVPB PRN (16:35)
--- NOTE | 2016-09-28 17:05 | EKG ---
Test Reason : Blood Pressure : / mmHG Vent. Rate : 092 BPM Atrial Rate : 092 BPM P-R Int : 192 ms QRS Dur : 096 ms QT Int : 370 ms P-R-T Axes : 054 -19 071 degrees QTc Int : 457 ms NORMAL SINUS RHYTHM NORMAL ECG WHEN COMPARED WITH ECG OF 10-JUL-2016 00:38, NO SIGNIFICANT CHANGE WAS FOUND Confirmed by RYAN SILVA MD ([id number]) on 09/28/2016 5:05:05 PM Referred By: Confirmed By:RYAN SILVA MD
--- NOTE | 2016-09-28 17:31 | CONSULT ---
Consult - text type - Consultation Consultation Note: FULL CONSULTATION DICTATED IMP: PARKINSONS WITH DJD RIGHT HIP AND ? PELVIS FRACTURE AND GENERALIZED WEAKNESS BLE PLAN: CT SCAN PELVIS, XRAY RIGHT KNEE, NEUROLOGY CONSULT
--- NOTE | 2016-09-28 19:11 | CONS ---
DATE OF CONSULTATION: DATE OF DICTATION: 09/28/2016 ORTHOPEDIC CONSULTATION HISTORY OF PRESENT ILLNESS: Patient is an 86-year-old male with past medical history significant for Parkinson's disease, complaining of progressive weakness in bilateral lower extremities causing multiple falls over the past week. Patient did complain of some right groin pain. Prior to the falls, patient had no pain in his lower extremities. He gives a questionable history of some DJD to his right knee. PHYSICAL EXAMINATION: He has no leg length discrepancies. He is able to straight leg raise on both sides. He has some increased pain in his hip with internal-external rotation. No point tenderness in any location around the pelvis or proximal hip. No tenderness in the right knee joint line. Range of motion is about 2 degrees to 95 degrees. Calf is also nontender, good overall alignment. 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 Radiology reads a questionable fracture of the pelvis but to my evaluation I did not see that. IMPRESSION: Right lower extremity pain, status post multiple falls, questionable fracture pelvis. PLAN: 1. Neurology consult, Dr. Huerta, who is his neurologist, should be contacted to evaluate him for worsening of his Parkinson disease. 2. Possible fracture right pelvis, ordered a CAT scan of his pelvis without contrast. 3. His possible DJD of the right knee, I have ordered x-rays for that as well. I will reevaluate the patient post these films and neurological evaluation. MERCEDES DENNISON M.D. [id number]
[2016-09-28] MEDS: HEPARIN NA (PORCINE) 5,000 UNITS/ML 1ML VIAL SQ SCH (21:06)
[2016-09-28] MEDS: CARBIDOPA/LEVODOPA 25/100 TABLET (FP) PO SCH (21:06)
[2016-09-28] MEDS: PRAMIPEXOLE DIHYDROCHLORIDE 0.125 MG TABLET PO SCH (21:06)
[2016-09-29] MEDS: CARBIDOPA/LEVODOPA 25/100 TABLET (FP) PO SCH ×3 (06:25→21:45)
[2016-09-29 08:15] LABS: BASOPHIL 0.3 % (0-2.0); EOSINOPHIL 1.2 % (0-4.5); MCH 30.1 pg (25.7-33.7); MCHC 34.3 g/dl (32.0-35.9); MEAN CELL VOLUME 87.8 fl (80-96); MEAN PLT VOLUME 8.5 fl (7.5-11.1); NEUTROPHILS 73.1 % (42.8-82.8); PLATELET COUNT 209 K/MM3 (134-434); RDW 14.2 % (11.9-15.9); WHITE BLOOD COUNT 10.5 K/mm3 (4.0-10.0)
[2016-09-29 08:58] LABS: CALCIUM 8.4 mg/dL (8.5-10.1); COCKROFT - GAULT 59.21; CREATININE 0.8 mg/dL (0.7-1.3)
[2016-09-29] MEDS ORDERED: PRAMIPEXOLE DI HCL 0.125 MG PO SCH (10:00)
[2016-09-29] MEDS ORDERED: PT OWN MED DRAWER 7, Y5N ONE ×2 (10:33→21:30)
[2016-09-29] MEDS: VALSARTAN 160 MG TABLET (UD) PO SCH (10:35)
[2016-09-29] MEDS: ASPIRIN COATED 81 MG TABLET.EC PO SCH (10:35)
[2016-09-29] MEDS: TAMSULOSIN HCL 0.4 MG CAP.ER.24H (FP) PO SCH (10:35)
[2016-09-29] MEDS: TERAZOSIN HCL 5 MG CAPSULE PO SCH (10:36)
[2016-09-29] MEDS: HEPARIN NA (PORCINE) 5,000 UNITS/ML 1ML VIAL SQ SCH ×3 (10:36→22:02)
--- NOTE | 2016-09-29 12:29 | PN ---
Progress Note (short form) - Note Progress Note: Ortho Pt seen and examined feeling much better- states he has no pain other than a few spasms decr pain, incr rom nvi ct scan neg for fx xrays knee- moderated djd a/p PT NTD d/w Dr. Dorado
--- NOTE | 2016-09-29 18:49 | HP ---
Admitting History and Physical - Primary Care Physician PCP: Antwon Be - Admission Chief Complaint: fall History of Present Illness: ER HISTORY - History of Present Illness Initial Comments: 09/28/16 12:14 86yM hx of htn, hl, gerd, tia, bph, spinal stenosis, parkinsons, mild dementia, ,presents with complaing of R hip pain. pt states he has been falling frequently , normally amulates with a walker, but sometimes ihs leg is weak and falls, he usually is able to slowly sit down when he falls, but yesterday, he fell on a smaller area, he was able to get up with assistance and was feeling ok without significant discomfort. pt states he bumped his head lightly on the wall, but had no headache, n/v, neck pain, back pain. th morning, when he woke up his pain was so severe in his right hip that he could not ambualte or stand up. pt states he has been feeling generally weaker recently, and falling more frequently but dnies any other complaints includes recent illness, fever/chills , cp, sob, cough, abd pain, n/v, dysuria, diarrhea, melena, bpr. 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 Cardiovascular: Yes: HTN, Other (peripheral arterial disease) Renal/: Yes: BPH - Smoking History Smoking history: Former smoker Have you smoked in the past 12 months: No If you are a former smoker, when did you quit?: 15 years ago - Alcohol/Substance Use Hx Alcohol Use: No History of Substance Use: reports: None Home Medications - Allergies Allergies/Adverse Reactions: Allergies Allergy/AdvReac Type Severity Reaction Status Date / Time Penicillins Allergy Severe Swelling Verified 09/28/16 11:21 - Home Medications Home Medications: Ambulatory Orders Tamsulosin HCl 0.4 mg PO DAILY 01/03/15 Terazosin HCl 5 mg PO DAILY 01/03/15 Valsartan 320 mg PO DAILY 09/23/15 Acetaminophen [Tylenol .Regular Strength -] 650 mg PO Q6H PRN #0 tablet Aspirin Coated [Ecotrin -] 81 mg PO DAILY #30 tablet.ec 07/12/16 Carbidopa/Levodopa 25/100 [Sinemet 25/100 -] 1.5 each PO TID tablet 07/12/16 Bupropion HCl [Bupropion Xl] 150 mg PO DAILY 09/28/16 Pramipexole Di-HCl [Pramipexole ER] 0.125 mg PO HS 09/28/16 Review of Systems - Review of Systems Constitutional: denies: Chills, Fever Gastrointestinal: denies: Abdominal Pain Musculoskeletal: reports: Joint Pain Physical Examination Vital Signs: Vital Signs Temperature 97 F L 09/29/16 17:11 Pulse Rate 75 09/29/16 17:11 Respiratory Rate 20 09/29/16 17:11 Blood Pressure 116/44 09/29/16 17:11 O2 Sat by Pulse Oximetry (%) 96 09/29/16 09:00 Constitutional: Yes: No Distress, Calm Cardiovascular: Yes: Regular Rate and Rhythm Respiratory: Yes: CTA Bilaterally Gastrointestinal: Yes: Normal Bowel Sounds, Soft, Abdomen, Obese. No: Tenderness Extremities: Yes: Other (able to move extremities) Edema: No Psychiatric: Yes: Alert, Oriented Labs: CBC, BMP 09/29/16 06:50 09/29/16 06:50 Imaging - Results X-ray: Report Reviewed Cat Scan: Report Reviewed EKG: Image Reviewed (nsr) Problem List - Problems (1) Dementia Code(s): F03.90 - UNSPECIFIED DEMENTIA WITHOUT BEHAVIORAL DISTURBANCE Qualifiers: Dementia type: Parkinson's disease (2) Fall Code(s): W19.XXXA - UNSPECIFIED FALL, INITIAL ENCOUNTER Qualifiers: Encounter type: initial encounter Qualified Code(s): W19.XXXA - Unspecified fall, initial encounter (3) HTN (hypertension) Code(s): I10 - ESSENTIAL (PRIMARY) HYPERTENSION Qualifiers: Hypertension type: essential hypertension Qualified Code(s): I10 - Essential (primary) hypertension (4) Parkinson disease Code(s): G20 - PARKINSON'S DISEASE (5) Contusion of hip, right Code(s): S70.01XA - CONTUSION OF RIGHT HIP, INITIAL ENCOUNTER (6) Unsteady gait Code(s): R26.81 - UNSTEADINESS ON FEET Assessment/Plan PLAN Pt has frequent falls Pelvic CT confirmed no fracture-- pain likely due to contusion unsteady gait Ortho eval and PT eval noted pain control continue with home meds may need SNF Heparin for DVT prophylaxis Time spent 30 min
[2016-09-29] MEDS ORDERED: ACETAMINOPHEN 325 MG TABLET (FP) PO PRN (18:57)
[2016-09-29] MEDS: PRAMIPEXOLE DIHYDROCHLORIDE 0.125 MG TABLET PO SCH (21:45)
[2016-09-30] MEDS: CARBIDOPA/LEVODOPA 25/100 TABLET (FP) PO SCH ×3 (06:18→21:02)
[2016-09-30] MEDS ORDERED: PT OWN MED DRAWER 7, Y5N ONE ×2 (10:20→20:40)
[2016-09-30] MEDS: VALSARTAN 160 MG TABLET (UD) PO SCH (10:22)
[2016-09-30] MEDS: ASPIRIN COATED 81 MG TABLET.EC PO SCH (10:22)
[2016-09-30] MEDS: TAMSULOSIN HCL 0.4 MG CAP.ER.24H (FP) PO SCH (10:22)
[2016-09-30] MEDS: HEPARIN NA (PORCINE) 5,000 UNITS/ML 1ML VIAL SQ SCH ×2 (10:22→21:03)
[2016-09-30] MEDS: TERAZOSIN HCL 5 MG CAPSULE PO SCH (10:22)
--- NOTE | 2016-09-30 10:35 | PN ---
Progress Note (short form) - Note Progress Note: Pt seen, doing very well orthopedically. Has very little pain in the hips/ pelvic area. Is able to ambulate with little to no pain. Was able to ambulate down the jesus with no problems. NTD from an ortho pov Can DC/transfer from an ortho pov Will follow PRN
--- NOTE | 2016-09-30 12:57 | DS ---
Physical Examination Vital Signs: Vital Signs Temperature 97.6 F 09/30/16 08:59 Pulse Rate 72 09/30/16 08:59 Respiratory Rate 18 09/30/16 08:59 Blood Pressure 127/57 09/30/16 08:59 O2 Sat by Pulse Oximetry (%) 97 09/30/16 09:00 Constitutional: Yes: No Distress, Calm Cardiovascular: Yes: Regular Rate and Rhythm Respiratory: Yes: CTA Bilaterally Gastrointestinal: Yes: Normal Bowel Sounds, Soft. No: Tenderness Edema: No Labs: CBC, BMP 09/29/16 06:50 09/29/16 06:50 Discharge Summary Reason For Visit: CLOSED FX OF SINGLE PUBIC RAMUS OF PELVIS Current Active Problems Closed fracture of single pubic ramus of pelvis (Acute) Contusion of hip, right (Acute) Parkinson disease (Acute) Unsteady gait (Acute) Hospital Course: Pt admitted for fall-- has pain in right hip-- pelvic xray shows possible pubic ramus fracture. Pelvic CT negative for fractures Seen by Ortho Pt is weak due to Parkinsons He has frequent falls pain better will need rehab - stable for dc to NH Condition: Good - Instructions Referrals: Antwon Be MD [Primary Care Provider] - Disposition: LONG TERM FACILITY - Home Medications Comprehensive Discharge Medication List: Ambulatory Orders Tamsulosin HCl 0.4 mg PO DAILY 01/03/15 Terazosin HCl 5 mg PO DAILY 01/03/15 Valsartan 320 mg PO DAILY 09/23/15 Acetaminophen [Tylenol .Regular Strength -] 650 mg PO Q6H PRN #0 tablet Aspirin Coated [Ecotrin -] 81 mg PO DAILY #30 tablet.ec 07/12/16 Carbidopa/Levodopa 25/100 [Sinemet 25/100 -] 1.5 each PO TID tablet 07/12/16 Bupropion HCl [Bupropion Xl] 150 mg PO DAILY 09/28/16 Pramipexole Di-HCl [Pramipexole ER] 0.125 mg PO HS 09/28/16
[2016-09-30] MEDS ORDERED: BISACODYL 10 MG SUPP.RECT RC ONE (13:45)
[2016-09-30] MEDS: PRAMIPEXOLE DIHYDROCHLORIDE 0.125 MG TABLET PO SCH (21:03)
[2016-10-01] MEDS: CARBIDOPA/LEVODOPA 25/100 TABLET (FP) PO SCH (06:01)
[2016-10-01 07:18] VITALS: BP 151/71; PULSE 69; TEMP 97.7
[2016-10-01] MEDS ORDERED: PT OWN MED DRAWER 7, Y5N ONE (09:57)
[2016-10-01] MEDS: TERAZOSIN HCL 5 MG CAPSULE PO SCH (10:00)
[2016-10-01] MEDS: HEPARIN NA (PORCINE) 5,000 UNITS/ML 1ML VIAL SQ SCH (10:00)
[2016-10-01] MEDS: ASPIRIN COATED 81 MG TABLET.EC PO SCH (10:00)
[2016-10-01] MEDS: TAMSULOSIN HCL 0.4 MG CAP.ER.24H (FP) PO SCH (10:00)
[2016-10-01] MEDS: VALSARTAN 160 MG TABLET (UD) PO SCH (10:00)
== END 2016-10-01 12:18 | DRG 57 ==
LOC: JER 11:13 → JERBED 14:17 → J8W 15:11
PROVIDERS: ADMIT Internal Medicine; ATTEND Internal Medicine
DX: G20 Parkinson's disease (principal); S70.01XA Contusion of right hip, initial encounter; W19.XXXA Unspecified fall, initial encounter; Y93.9 Activity, unspecified; Y92.89 Other specified places as the place of occurrence of the external cause; Y99.9 Unspecified external cause status; R26.81 Unsteadiness on feet; I10 Essential (primary) hypertension; Z87.891 Personal history of nicotine dependence; F03.90 Unspecified dementia, unspecified severity, without behavioral disturbance, psychotic disturbance, mood disturbance, and anxiety; K21.9 Gastro-esophageal reflux disease without esophagitis; N40.0 Benign prostatic hyperplasia without lower urinary tract symptoms
CPT/HCPCS: 36415; 71010-TC; 72192-TC; 73030-TC-RT; 73523-TC; 73560-TC-RT; 80048; 80053; 81003; 85025; 93005; 93010; 97116-GP; 97161-GP; 99283-25; J1644

== ENCOUNTER 2016-12-02 20:21 | Emergency (ER) | payer BC, OTHER ==
--- NOTE | 2016-12-02 20:41 | PDOC ---
History of Present Illness <Abiel Campa - Last Filed: 12/02/16 22:09> - General History Source: Patient Exam Limitations: No Limitations - History of Present Illness Initial Comments: 12/02/16 21:18 Patient is a 86 year old female with a significant past medical history of htn, hl, gerd, tia, bph, spinal stenosis, Parkinson's disease, and mild dementia who presents to the ED with laceration to the left side of the head s/p fall. Patient was using a walker ambulating as he fell. He notes that he was recently dc from [facility]. He denies any LOC. <Nora Tineo - Last Filed: 12/02/16 22:25> <Red Cavazos - Last Filed: 12/02/16 23:26> - General Stated Complaint: FALL Time Seen by Provider: 12/02/16 20:41 Past History <Abiel Campa - Last Filed: 12/02/16 22:09> <Nora Tineo - Last Filed: 12/02/16 22:25> - Past Medical History Anemia: No Asthma: No Cancer: No Cardiac Disorders: No CVA: No COPD: No CHF: No Dementia: No Diabetes: No GI Disorders: Yes (GERD) Disorders: Yes (BPH) HTN: Yes Hypercholesterolemia: No Liver Disease: No Seizures: No Thyroid Disease: No - Surgical History Abdominal Surgery: Yes (HERNIA) Appendectomy: No Cardiac Surgery: No Cholecystectomy: Yes Lung Surgery: No Neurologic Surgery: No Orthopedic Surgery: No - Immunization History Immunization Up to Date: No - Psycho/Social/Smoking Cessation Hx Anxiety: No Suicidal Ideation: No Smoking History: Former smoker Have you smoked in the past 12 months: No If you are a former smoker, when did you quit?: 15 years ago Hx Alcohol Use: No Drug/Substance Use Hx: No Substance Use Type: None Hx Substance Use Treatment: No <Red Cavazos - Last Filed: 12/02/16 23:26> - Past Medical History Allergies/Adverse Reactions: Allergies Allergy/AdvReac Type Severity Reaction Status Date / Time Penicillins Allergy Severe Swelling Verified 12/02/16 21:11 Home Medications: Ambulatory Orders Tamsulosin HCl 0.4 mg PO DAILY 01/03/15 Terazosin HCl 5 mg PO DAILY 01/03/15 Valsartan 320 mg PO DAILY 09/23/15 Acetaminophen [Tylenol .Regular Strength -] 650 mg PO Q6H PRN #0 tablet Aspirin Coated [Ecotrin -] 81 mg PO DAILY #30 tablet.ec 07/12/16 Carbidopa/Levodopa 25/100 [Sinemet 25/100 -] 1.5 each PO TID tablet 07/12/16 Bupropion HCl [Bupropion Xl] 150 mg PO DAILY 09/28/16 Pramipexole Di-HCl [Pramipexole ER] 0.125 mg PO HS 09/28/16 Review of Systems - Review of Systems Able to Perform ROS?: Yes Comments:: 12/02/16 21:18 GENERAL/CONSTITUTIONAL: No fever or chills. No weakness. HEAD, EYES, EARS, NOSE AND THROAT: (+)laceration to the left side of the head. No change in vision. No ear pain or discharge. No sore throat. CARDIOVASCULAR: No chest pain or shortness of breath. RESPIRATORY: No cough, wheezing, or hemoptysis. GASTROINTESTINAL: No nausea, vomiting, diarrhea or constipation. GENITOURINARY: No dysuria, frequency, or change in urination. MUSCULOSKELETAL: No joint or muscle swelling or pain. No neck or back pain. SKIN: No rash NEUROLOGIC: No headache, vertigo, loss of consciousness, or change in strength/ sensation. ENDOCRINE: No increased thirst. No abnormal weight change. HEMATOLOGIC/LYMPHATIC: No anemia, easy bleeding, or history of blood clots. ALLERGIC/IMMUNOLOGIC: No hives or skin allergy. <Nora Tineo - Last Filed: 12/02/16 22:25> *Physical Exam - Vital Signs Last Vital Signs Temp Pulse Resp BP Pulse Ox 98.9 F 72 16 140/51 99 12/02/16 21:09 12/02/16 21:09 12/02/16 21:09 12/02/16 21:09 12/02/16 21:09 <Abiel Campa - Last Filed: 12/02/16 22:09> - Vital Signs Last Vital Signs Temp Pulse Resp BP Pulse Ox 98.9 F 72 16 140/51 99 12/02/16 21:09 12/02/16 21:09 12/02/16 21:09 12/02/16 21:09 12/02/16 21:09 - Physical Exam Comments: 12/02/16 21:19 GENERAL: Awake, alert, and fully oriented, in no acute distress HEAD: No signs of trauma EYES: PERRLA, EOMI, sclera anicteric, conjunctiva clear ENT: Auricles normal inspection, hearing grossly normal, nares patent, oropharynx clear without exudates. Moist mucosa NECK: Normal ROM, supple, no lymphadenopathy, JVD, or masses LUNGS: Breath sounds equal, clear to auscultation bilaterally. No wheezes, and no crackles HEART: Regular rate and rhythm, normal S1 and S2, no murmurs, rubs or gallops ABDOMEN: Soft, nontender, normoactive bowel sounds. No guarding, no rebound. No masses EXTREMITIES: Normal range of motion, no edema. No clubbing or cyanosis. No cords, erythema, or tenderness NEUROLOGICAL: Cranial nerves II through XII grossly intact. Normal speech. SKIN: (+)4 cm laceration over the left sided temporal-parietal. Warm, Dry, normal turgor, no rashes noted. <Nora Tineo - Last Filed: 12/02/16 22:25> Procedures - Laceration/Wound Repair Left Parietal Wound Length: to 2.5 cm Wound Explored: clean, no foreign body present Wound's Depth, Shape: superficial, linear Irrigated w/ Saline: Yes Betadine Prep: No (Chlorohexadine) Anesthesia: 1% Lidocaine w/ Epi Amount of Anesthetic (ccs): 5 Wound Repaired With: [place] Number of Sutures: 4 Layer Closure: Yes Splint Applied: No (Head laceration) Sling Applied: No (Head laceration) <Abiel Campa - Last Filed: 12/02/16 22:09> ED Treatment Course - Medications Given in the ED: ED Medications Discontinued Medications Generic Name Dose Route Start Last Admin Trade Name Freq PRN Reason Stop Dose Admin Lidocaine/Epinephrine 10 ml 12/02/16 21:02 12/02/16 21:29 Xylocaine 1%-Epi 1:100,000 PNB 12/02/16 21:03 10 ml ONCE ONE Administration <Abiel Campa - Last Filed: 12/02/16 22:09> Medical Decision Making - Medical Decision Making 12/02/16 21:20 86 year old male with pmhx of of htn, hl, gerd, tia, bph, spinal stenosis, Parkinson's disease, and mild dementia who presents to the ED s/p fall and obtaining a laceration to the left side of the head. Plan - Head CT - Haley - Tetanus shot <Nora Tineo - Last Filed: 12/02/16 22:25> *DC/Admit/Observation/Transfer <KatherynAbiel - Last Filed: 12/02/16 22:09> - Attestations Scribe Attestion: 12/02/16 21:20 Documentation prepared by CORTNEY Engel, acting as medical service technician for Red Cavazos DO. <Nora Tineo - Last Filed: 12/02/16 22:25> - Discharge Dispostion Admit: No - Attestations Physician Attestion: 12/02/16 20:41 I, Dr. Red Cavazos, attest that this document has been prepared under my direction and personally reviewed by me in its entirety. I further attest, that it accurately reflects all work, treatment, procedures and medical decision -making performed by me. <Red Cavazos - Last Filed: 12/02/16 23:26> Diagnosis at time of Disposition: Recurrent falls Laceration of scalp Qualifiers: Encounter type: initial encounter Qualified Code(s): S01.01XA - Laceration without foreign body of scalp, initial encounter - Discharge Dispostion Disposition: HOME Condition at time of disposition: Improved - Referrals Referrals: Luis Eduardo Polk MD [Primary Care Provider] - - Patient Instructions Printed Discharge Instructions: DI for Closed Head Injury, DI for Laceration Repair -- [facility] Additional Instructions: Haley can come out in 7 days. Return to us if any problems.
[2016-12-02] MEDS ORDERED: LIDOCAINE 1%/EPI 1:100000 (50 ML MULTI DOSE VIAL) PNB ONE (21:02)
[2016-12-02 21:12] VITALS: BP 140/51; PULSE 72; TEMP 98.9; BMI 22.4
[2016-12-02] MEDS ORDERED: DIPHTH,PERTUSS(ACELL),TET 0.5 ML DISP.SYRIN IM ONE (21:23)
[2016-12-02] MEDS ORDERED: LIDOCAINE 1%/EPI 1:100000 (50 ML MULTI DOSE VIAL) ONE (21:26)
== END 2016-12-02 23:51 | disposition home or self-care (01) ==
LOC: JER 20:21
PROC: 0HQ0XZZ Repair Scalp Skin, External Approach (ICD-10-PCS; principal; 2016-12-02)
PROC: 3E0234Z Introduction of Serum, Toxoid and Vaccine into Muscle, Percutaneous Approach (ICD-10-PCS; 2016-12-02)
DX: S01.01XA Laceration without foreign body of scalp, initial encounter (principal); W18.39XA Other fall on same level, initial encounter; Z91.81 History of falling; Y93.89 Activity, other specified; Y92.019 Unspecified place in single-family (private) house as the place of occurrence of the external cause; I10 Essential (primary) hypertension; E78.5 Hyperlipidemia, unspecified; K21.9 Gastro-esophageal reflux disease without esophagitis; N40.0 Benign prostatic hyperplasia without lower urinary tract symptoms; G20 Parkinson's disease; F02.80 Dementia in other diseases classified elsewhere, unspecified severity, without behavioral disturbance, psychotic disturbance, mood disturbance, and anxiety; Z86.73 Personal history of transient ischemic attack (TIA), and cerebral infarction without residual deficits; R26.89 Other abnormalities of gait and mobility; Z99.89 Dependence on other enabling machines and devices
CPT/HCPCS: 70450-TC; 90715; 99281-25

== ENCOUNTER 2018-02-06 18:27 | Emergency (ER) | payer BC ==
--- NOTE | 2018-02-06 18:52 | PDOC ---
History of Present Illness - General Chief Complaint: Injury Stated Complaint: FALL Time Seen by Provider: 02/06/18 18:29 - History of Present Illness Initial Comments: 02/06/18 19:10 87 yo M w a hx of htn, hl, gerd, tia, bph, spinal stenosis, parkinsons, mild dementia, was BIBEMS after he fell down earlier today and hit his head. His states that he falls down about once a month and he often forgets that he is not able to ambulate well without the walker. Today he tried getting up from a chair and lost his balance, then hit his head on a bureau. He denies any LOC or taking any blood thinners. He has a gash wound on his head which is actively bleeding a very small amount of blood. He states "I want to get out of here so take your picture, do your tests, and let me go." Denies recent fevers, chills, infections. Denies chest pain, SOB or difficulty breathing. Denies dysuria, frequency, urgency. Denies any joint or muscle pain from the fall. Past History - Past Medical History Allergies/Adverse Reactions: Allergies Allergy/AdvReac Type Severity Reaction Status Date / Time Penicillins Allergy Severe Swelling Verified 02/06/18 19:06 Home Medications: Ambulatory Orders Tamsulosin HCl 0.4 mg PO DAILY 01/03/15 Terazosin HCl 5 mg PO DAILY 01/03/15 Valsartan 320 mg PO DAILY 09/23/15 Acetaminophen [Tylenol .Regular Strength -] 650 mg PO Q6H PRN #0 tablet Aspirin Coated [Ecotrin -] 81 mg PO DAILY #30 tablet.ec 07/12/16 Carbidopa/Levodopa 25/100 [Sinemet 25/100 -] 1.5 each PO TID tablet 07/12/16 Bupropion HCl [Bupropion Xl] 150 mg PO DAILY 09/28/16 Pramipexole Di-HCl [Pramipexole ER] 0.125 mg PO HS 09/28/16 Anemia: No Asthma: No Cancer: No Cardiac Disorders: No CVA: No COPD: No CHF: No Dementia: No Diabetes: No GI Disorders: Yes (GERD) Disorders: Yes (BPH) HTN: Yes Hypercholesterolemia: No Liver Disease: No Seizures: No Thyroid Disease: No - Surgical History Abdominal Surgery: Yes (HERNIA) Appendectomy: No Cardiac Surgery: No Cholecystectomy: Yes Lung Surgery: No Neurologic Surgery: No Orthopedic Surgery: No - Immunization History Immunization Up to Date: No - Suicide/Smoking/Psychosocial Hx Smoking History: Former smoker Have you smoked in the past 12 months: No If you are a former smoker, when did you quit?: 15 years ago Hx Alcohol Use: No Drug/Substance Use Hx: No Substance Use Type: None Hx Substance Use Treatment: No Review of Systems - Review of Systems Comments:: 02/06/18 19:15 CONSTITUTIONAL: Absent: fever, chills, diaphoresis, generalized weakness, malaise, loss of appetite HEENT: Absent: rhinorrhea, nasal congestion, throat pain, throat swelling, difficulty swallowing, mouth swelling, ear pain, eye pain, visual Changes CARDIOVASCULAR: Absent: chest pain, syncope, palpitations, irregular heart rate, lightheadedness , peripheral edema RESPIRATORY: Absent: cough, shortness of breath, dyspnea with exertion, orthopnea, wheezing, stridor, hemoptysis GASTROINTESTINAL: Absent: abdominal pain, abdominal distension, nausea, vomiting, diarrhea, constipation, melena, hematochezia GENITOURINARY: Absent: dysuria, frequency, urgency, hesitancy, hematuria, flank pain, genital pain MUSCULOSKELETAL: Absent: myalgia, arthralgia, joint swelling SKIN: Present: wound on head Absent: rash, itching, pallor HEMATOLOGIC/IMMUNOLOGIC: Absent: easy bleeding, easy bruising, lymphadenopathy, frequent infections ENDOCRINE: Absent: unexplained weight gain, unexplained weight loss, heat intolerance, cold intolerance NEUROLOGIC: Present: unsteady gait Absent: headache, focal weakness or paresthesias, dizziness, seizure, mental status changes, bladder or bowel incontinence PSYCHIATRIC: Absent: anxiety, depression, suicidal or homicidal ideation, hallucinations. *Physical Exam - Physical Exam Comments: 02/06/18 19:18 GENERAL: Well developed, well nourished. Awake and alert. No acute distress. HEENT: There is a 6-8 cm gash on the posterolateral aspect of the patients head. It is not tender to touch. It is actively bleeding a very small amount of blood. Normocephalic. PERRLA, EOMI. No conjunctival pallor. Sclera are non-icteric. Moist mucous membranes. Oropharynx is clear. NECK: Supple. Full ROM. No JVD. No thyromegaly. No lymphadenopathy. CARDIOVASCULAR: Regular rate and rhythm. No murmurs, rubs, or gallops. Distal pulses are 2+ and symmetric. PULMONARY: No evidence of respiratory distress. Lungs clear to auscultation bilaterally. No wheezing, rales or rhonchi. ABDOMINAL: Soft. Non-tender. Non-distended. No rebound or guarding. No organomegaly. Normoactive bowel sounds. MUSCULOSKELETAL Normal range of motion at all joints. No bony deformities or tenderness. No CVA tenderness. EXTREMITIES: No cyanosis. No clubbing. No edema. No calf tenderness. SKIN: Warm and dry. Normal capillary refill. No rashes. No jaundice. NEUROLOGICAL: Alert, awake, appropriate. Cranial nerves 2-12 intact. No deficits to light touch in face, upper extremities and lower extremities. No motor deficits in the in face, upper extremities and lower extremities. Normal speech. Toes are down-going bilaterally. PSYCHIATRIC: Cooperative. Good eye contact. Appropriate mood and affect. Procedures - Laceration/Wound Repair Occipital Wound Length: 5.0 to 7.5 cm Wound Explored: clean Wound's Depth, Shape: superficial Irrigated w/ Saline: Yes Betadine Prep: Yes Anesthesia: 2% Lidocaine Amount of Anesthetic (ccs): 11 Wound Repaired With: Sutures Suture Size/Type: 3:0 Number of Sutures: 3 Sterile Dressing Applied: Yes Splint Applied: No ED Treatment Course - LABORATORY CBC & Chemistry Diagram: 02/06/18 19:30 02/06/18 19:30 Medical Decision Making - Medical Decision Making 02/06/18 19:20 87 yo M w a hx of htn, hl, gerd, tia, bph, spinal stenosis, parkinsons, mild dementia, was BIBEMS after he fell down earlier today and hit his head. He has a gash on his head that is bleeding a very small amount of blood. Patient states he falls down once a month and today was his day. Denies LOC, blood thinners. Plan: Head CT, basic labs, urine, EKG, analgesia, re-assess. -Will close his head wound with stitches. Head CT showed no acute bleed. EKG was sinus. Labs unremarkable Put in 3 stitches. Patient has an appt on Tuesday with his PCP and will have the stitches taken out then. 02/06/18 21:55 *DC/Admit/Observation/Transfer Diagnosis at time of Disposition: Frequent falls, Scalp laceration - Discharge Dispostion Disposition: HOME Condition at time of disposition: Good Decision to Admit order: No - Referrals Referrals: Luis Eduardo Polk MD [Staff Physician] - Oneyda Polk [Staff Physician] - - Patient Instructions Printed Discharge Instructions: How to Prevent Falls, DI for Closed Head Injury Additional Instructions: You came into the ER today because you fell and hit your head. The Cat Scan showed that you are not bleeding into your brain. We put 3 stitches in your head to stop the bleeding. Please make sure to go to a doctor to have the stitches removed in 7 to 10 days. Make sure to follow up at your primary doctor this coming Tuesday to make sure your head is not in pain and you are not continuing to bleed. Please make sure to come back to the ER if you get a headache, start losing your balance, develop a fever, have changes in your vision, or have any new or worsening concerns. Thank you for coming to the [facility] ER. we hope you feel better soon. Print Language: KOREAN - Post Discharge Activity
[2018-02-06] MEDS ORDERED: ACETAMINOPHEN 325 MG TABLET (FP) PO ONE (19:02)
[2018-02-06 19:42] LABS: BASO % 0.6 % (0-2.0); HEMATOCRIT 34.6 % (35.4-49); HEMOGLOBIN 11.8 GM/dL (11.7-16.9); LYMPH % 16.5 % (8-40); MCH 30.4 pg (25.7-33.7); MCHC 34.2 g/dl (32.0-35.9); MEAN CELL VOLUME 88.8 fl (80-96); MEAN PLT VOLUME 8.1 fl (7.5-11.1); MONO % 8.2 % (3.8-10.2); NEUT % 71.7 % (42.8-82.8); PLATELET COUNT 218 K/MM3 (134-434); RDW 14.9 % (11.9-15.9); WHITE BLOOD COUNT 6.9 K/mm3 (4.0-10.0)
[2018-02-06] MEDS ORDERED: ACETAMINOPHEN 325 MG TABLET (FP) ONE (19:44)
[2018-02-06 19:53] VITALS: BMI 22.2
[2018-02-06 20:15] LABS: ALBUMIN 3.5 g/dl (3.4-5.0); ALK PHOS 135 U/L (45-117); ANION GAP 6 MMOL/L (8-16); BILIRUBIN,TOTAL 0.4 mg/dL (0.2-1); BLOOD UREA NITROGEN 20 mg/dL (7-18); CALCIUM 9.1 mg/dL (8.5-10.1); CHLORIDE 104 mmol/L (98-107); CO2 28 mmol/L (21-32); CREATININE 1.1 mg/dL (0.55-1.3); GLUCOSE,RANDOM 113 mg/dL (74-106); SGOT/AST 20 U/L (15-37); SGPT/ALT 22 U/L (13-61); SODIUM 137 mmol/L (136-145); TOT PROT 7.2 g/dl (6.4-8.2)
[2018-02-06] MEDS ORDERED: LIDOCAINE HCL 2% (20ML MULTI-DOSE VIAL) NR ONE (21:09)
--- NOTE | 2018-02-06 21:34 | PDOC ---
Attending Attestation - Resident Resident Name: Osmin Spivey - ED Attending Attestation I have performed the following: I have examined & evaluated the patient, The case was reviewed & discussed with the resident, I agree w/resident's findings & plan, Exceptions are as noted - HPI HPI: 02/06/18 21:33 87 yo male came from home after falling and sustaining a scalp laceration - Physicial Exam PE: 02/06/18 21:34 87 yo male with history of PArkinson's disease and difficulty with his gait head there is a left 4 cm linear scalp laceration in his occipital area eyes eomi neck supple, no cervical vertebral tenderness lungs cta b/l cvs [id number] no cva tenderness abd nontender neuro alert, conversant,moving all extremities skin warm and dry - Medical Decision Making 02/06/18 21:40 ct scan head : no acute intracranial p[athology,no skull fracture imp closed head trauma,scalp laceration (sutures) plan follow up with Dr Baron 02/06/18 21:57
[2018-02-06 22:10] LABS: URINE APPEARANCE CLEAR; URINE BILIRUBIN NEGATIVE (<2.0 mg/dL); URINE COLOR LTYELLOW; URINE GLUCOSE (UA) NEGATIVE (NEGATIVE); URINE KETONE NEGATIVE (NEGATIVE); URINE LEUK ESTERASE NEGATIVE (NEGATIVE); URINE NITRITE NEGATIVE (NEGATIVE); URINE PROTEIN NEGATIVE (NEGATIVE); URINE UROBILINOGEN NEGATIVE mg/dL (0.2-1.0)
[2018-02-06 22:16] VITALS: BP 145/57; PULSE 97; TEMP 97.8
--- NOTE | 2018-02-07 10:53 | EKG ---
Test Reason : Blood Pressure : / mmHG Vent. Rate : 086 BPM Atrial Rate : 086 BPM P-R Int : 214 ms QRS Dur : 090 ms QT Int : 374 ms P-R-T Axes : 061 -26 054 degrees QTc Int : 447 ms POOR DATA QUALITY, INTERPRETATION MAY BE ADVERSELY AFFECTED SINUS RHYTHM WITH 1ST DEGREE A-V BLOCK OTHERWISE NORMAL ECG Confirmed by MD CATALINO, JORDAN ([id number]) on 02/07/2018 10:52:33 AM Referred By: Confirmed By:JORDAN BAE MD
== END 2018-02-07 00:14 | disposition home or self-care (01) ==
LOC: JER 18:27
PROC: 0HQ0XZZ Repair Scalp Skin, External Approach (ICD-10-PCS; principal; 2018-02-06)
DX: S01.01XA Laceration without foreign body of scalp, initial encounter (principal); W18.39XA Other fall on same level, initial encounter; Y93.89 Activity, other specified; Y92.003 Bedroom of unspecified non-institutional (private) residence as the place of occurrence of the external cause; N40.0 Benign prostatic hyperplasia without lower urinary tract symptoms; I10 Essential (primary) hypertension; K21.9 Gastro-esophageal reflux disease without esophagitis; Z87.891 Personal history of nicotine dependence
CPT/HCPCS: 12004; 36415; 70450-TC; 80053; 81003; 85025; 87086; 93005; 93010; 99284-25

== ENCOUNTER 2018-02-16 12:53 | Emergency (ER) | payer BC ==
[2018-02-16 13:14] VITALS: BP 145/53; PULSE 86; TEMP 98; BMI 22.2
--- NOTE | 2018-02-16 13:43 | PDOC ---
Suture Removal/Wound Check HPI - History of Present Illness Chief Complaint: Suture/Staple Removal(Here) Stated Complaint: SUTURE/STAPLE REMOVAL Time Seen by Provider: 02/16/18 13:23 History Source: Yes: Patient Exam Limitations: Yes: No Limitations Treated at: [facility] ED - Previous ED Treatment Type of procedure performed on last visit: Yes: Laceration Repair Tetanus Immunization: Yes: Up to Date Past History - Travel Traveled outside of the country in the last 30 days: No Close contact w/someone who was outside of country & ill: No - Past Medical History Allergies/Adverse Reactions: Allergies Allergy/AdvReac Type Severity Reaction Status Date / Time Penicillins Allergy Severe Swelling Verified 02/06/18 19:06 Home Medications: Ambulatory Orders Tamsulosin HCl 0.4 mg PO DAILY 01/03/15 Terazosin HCl 5 mg PO DAILY 01/03/15 Valsartan 320 mg PO DAILY 09/23/15 Acetaminophen [Tylenol .Regular Strength -] 650 mg PO Q6H PRN #0 tablet Aspirin Coated [Ecotrin -] 81 mg PO DAILY #30 tablet.ec 07/12/16 Carbidopa/Levodopa 25/100 [Sinemet 25/100 -] 1.5 each PO TID tablet 07/12/16 Bupropion HCl [Bupropion Xl] 150 mg PO DAILY 09/28/16 Pramipexole Di-HCl [Pramipexole ER] 0.125 mg PO HS 09/28/16 Anemia: No Asthma: No Cancer: No Cardiac Disorders: No CVA: No COPD: No CHF: No Dementia: No Diabetes: No GI Disorders: Yes (GERD) Disorders: Yes (BPH) HTN: Yes Hypercholesterolemia: No Liver Disease: No Seizures: No Thyroid Disease: No - Surgical History Abdominal Surgery: Yes (HERNIA) Appendectomy: No Cardiac Surgery: No Cholecystectomy: Yes Lung Surgery: No Neurologic Surgery: No Orthopedic Surgery: No - Immunization History Immunization Up to Date: No - Suicide/Smoking/Psychosocial Hx Smoking History: Former smoker Have you smoked in the past 12 months: No If you are a former smoker, when did you quit?: 15 years ago Information on smoking cessation initiated: No Hx Alcohol Use: No Drug/Substance Use Hx: No Substance Use Type: None Hx Substance Use Treatment: No Suture Removal/Wound Check PE - Physical Exam Laceration/Wound Check Symptoms: reports: None Comments: 02/16/18 13:41 scalp laceration to left occiput = well approximated Current Severity Level: None Maximum Severity Level: None *Review of Systems - Review of Systems Able to Perform ROS?: Yes Constitutional: Yes: See HPI. No: Symptoms Reported HEENTM: Yes: See HPI. No: Symptoms Reported Integumentary: Yes: See HPI. No: Symptoms Reported, Bruising All Other Systems: Reviewed and Negative *Physical Exam - Vital Signs Last Vital Signs Temp Pulse Resp BP Pulse Ox 98.0 F 86 18 145/53 L 100 02/16/18 13:07 02/16/18 13:07 02/16/18 13:07 02/16/18 13:07 02/16/18 13:07 - Physical Exam General Appearance: Yes: Nourished, Appropriately Dressed. No: Apparent Distress HEENT: positive: Normal ENT Inspection, TMs Normal, Pharynx Normal Neck: negative: Tender Respiratory/Chest: positive: Lungs Clear Integumentary: positive: Normal Color, Dry, Warm Neurologic: positive: ruffling hemmer automatic II-XII NML intact *DC/Admit/Observation/Transfer Diagnosis at time of Disposition: Visit for suture removal - Discharge Dispostion Disposition: HOME Condition at time of disposition: Stable Decision to Admit order: No - Referrals Referrals: Luis Eduardo Polk MD [Primary Care Provider] - - Patient Instructions Printed Discharge Instructions: DI for Suture Removal - Post Discharge Activity
[2018-02-16] MEDS ORDERED: FUROSEMIDE 40 MG/4 ML INJECTABLE VIAL ONE (13:51)
== END 2018-02-16 13:47 | disposition home or self-care (01) ==
LOC: JERFT 12:53
DX: Z48.817 Encounter for surgical aftercare following surgery on the skin and subcutaneous tissue (principal); Z48.02 Encounter for removal of sutures
CPT/HCPCS: 99281-25

== ENCOUNTER 2018-05-24 11:31 | Emergency (ER) | payer BC ==
[2018-05-24 11:58] VITALS: BP 176/70; PULSE 96; TEMP 98.1; BMI 22.2
[2018-05-24] MEDS ORDERED: ACETAMINOPHEN 325 MG TABLET (FP) PO ONE (12:14)
--- NOTE | 2018-05-24 12:14 | PDOC ---
History of Present Illness - General Chief Complaint: Laceration Stated Complaint: Laceration Time Seen by Provider: 05/24/18 12:13 History Source: Patient Exam Limitations: Dementia - History of Present Illness Initial Comments: 05/24/18 14:19 The patient is an 87 year old male, with a significant past medical history of HTN, hyperlipidemia, GERD, TIA, BPH, spinal stenosis, Parkinsons disease, mild dementia and recent falls, who presents to the emergency department after mechanical trip and fall down earlier today while using his walker and hitting his head. No LOC. no prodromal sx. +bleeding and headache, otherwise no cp or sob, AP, n/v/d, urinary sx, back pain, weakness or paresthesias. With , able to provide supplemental information. c/o of right shoulder pain, chronic bilateral shoulder pain x years. tdap up to date. walks with walker at baseline, no safety concerns per . 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 Allergies: Penicillin. Past Surgical History: Cholecystectomy, Hernia Repair. Social History: Former smoker (quit 15+ years ago). Denies alcohol or drug use. PCP: Dr. Luis Eduardo BALL Constitutional: no fevers or chills. HEENT: no headache or dizziness. No congestion. No visual/hearing disturbances. CVS: no cp or syncope. Resp: no sob. No cough. Gastrointestinal: no abdominal pain, nausea or vomiting. Genitourinary: no urinary sx, hematuria. MUSCULOSKELETAL: No joint pain and swelling. No neck or back pain. +shoulder pain. SKIN: no redness or skin changes, no discharge, no rash. +scalp wound and bleeding, skin tear Hematologic: no easy bruising/bleeding. NEUROLOGIC: No headache, dizziness, LOC or altered mental status. No weakness, numbness or tingling. Allergic/Immunologic: no allergies All other systems reviewed and negative, or as documented in HPI. PE General: GCS 15 NAD, speech clear HEENT: NCAT, PERRL, EOMI. Airway intact. Left posterior scalp with +swelling and tenderness and 4cm SQ linear laceration Neck: neck supple, no midline C spine tenderness, ROM intact. Resp: Lungs clear, no crepitus Chest: no clavicle or chest wall tenderness CVS: RRR, 2+ pulses throughout. Abdomen: Abdomen soft, NTND, nonperitoneal. Back: Back nontender, no midline spinal tenderness, FROM, no stepoffs. MSK: Pelvis stable, FROM in all extremities. No focal msk tenderness in all extremities. Neuro: Alert, no focal neuro deficits. Skin: normal color and well perfused. +skin tear to left wrist on dorsal aspect , dried blood, nontender 05/24/18 15:32 05/24/18 15:37 Past History - Past Medical History Allergies/Adverse Reactions: Allergies Allergy/AdvReac Type Severity Reaction Status Date / Time Penicillins Allergy Severe Swelling Verified 05/24/18 11:55 Home Medications: Ambulatory Orders Tamsulosin HCl 0.4 mg PO DAILY 01/03/15 Terazosin HCl 5 mg PO DAILY 01/03/15 Valsartan 320 mg PO DAILY 09/23/15 Acetaminophen [Tylenol .Regular Strength -] 650 mg PO Q6H PRN #0 tablet Aspirin Coated [Ecotrin -] 81 mg PO DAILY #30 tablet.ec 07/12/16 Carbidopa/Levodopa 25/100 [Sinemet 25/100 -] 1.5 each PO TID tablet 07/12/16 Bupropion HCl [Bupropion Xl] 150 mg PO DAILY 09/28/16 Pramipexole Di-HCl [Pramipexole ER] 0.125 mg PO HS 09/28/16 Anemia: No Asthma: No Cancer: No Cardiac Disorders: No CVA: No COPD: No CHF: No Dementia: No Diabetes: No GI Disorders: Yes (GERD) Disorders: Yes (BPH) HTN: Yes Hypercholesterolemia: No Liver Disease: No Seizures: No Thyroid Disease: No - Surgical History Abdominal Surgery: Yes (HERNIA) Appendectomy: No Cardiac Surgery: No Cholecystectomy: Yes Lung Surgery: No Neurologic Surgery: No Orthopedic Surgery: No - Immunization History Immunization Up to Date: No - Suicide/Smoking/Psychosocial Hx Smoking History: Unknown if ever smoked Have you smoked in the past 12 months: No If you are a former smoker, when did you quit?: 15 years ago Hx Alcohol Use: No Drug/Substance Use Hx: No Substance Use Type: None Hx Substance Use Treatment: No *Physical Exam - Vital Signs Last Vital Signs Temp Pulse Resp BP Pulse Ox 98.1 F 96 H 18 176/70 H 99 05/24/18 11:57 05/24/18 11:57 05/24/18 11:57 05/24/18 11:57 05/24/18 11:57 Moderate Sedation - Procedure Monitoring Vital Signs: Procedure Monitoring Vital Signs Temperature 98.1 F 05/24/18 11:57 Pulse Rate 96 H 05/24/18 11:57 Respiratory Rate 18 05/24/18 11:57 Blood Pressure 176/70 H 05/24/18 11:57 O2 Sat by Pulse Oximetry (%) 99 05/24/18 11:57 Procedures - Laceration/Wound Repair Left Posterior Occipital Wound Length: 2.6 to 5.0 cm Wound Explored: clean, no foreign body present Wound's Depth, Shape: linear, contused tissue Irrigated w/ Saline: Yes Betadine Prep: No (chloroprep) Anesthesia: 1% Lidocaine Amount of Anesthetic (ccs): 5 Wound Debrided: minimal Wound Repaired With: [place] Number of Sutures: 6 Layer Closure: No Progress: 05/24/18 14:22 no complications, good approximation 6 precious Medical Decision Making - Medical Decision Making 05/24/18 14:20 hpi as documented. Trauma ddx: ICH, C spine injury, clavicle/prox humerus fracture, effusion, hip hematoma, hip /femur fracture, pelvis fracture. MSK contusion. Rib fractures. Intra abdominal and thoracic injuries, bleed doubt abdominal/thoracic injuries CT head and C spine neg for injuries or bleed. degenerative changes; cervical anterolisthesis Xrays_degenerative cahnges in both shoulders, but normal alignment, in glenoid cavity. no rib fx seen. pelvis ring stable, acetabulum in tact, normal appearing pubic symphysis. given tylenol for analgesia. scalp lac repaired, 6 precious, uncomplicated. hematoma and contusion treated with ice for the swelling. at baseline mental status encouraged walker use at all times no safety concerns at home. 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 fall prevention safety provided. PCP followup return precautions discussed removal of precious in 7 days. monitor for infection, clean with soap and water after 24 hours, keep covered and clean, skin tear with wound care instructions, topical abx as needed. keep clean and dry and covered. 05/24/18 15:33 *DC/Admit/Observation/Transfer Diagnosis at time of Disposition: Skin tear, Scalp hematoma, Occipital scalp laceration - Discharge Dispostion Disposition: HOME Condition at time of disposition: Improved Decision to Admit order: No - Referrals Referrals: Luis Eduardo Polk MD [Primary Care Provider] - - Patient Instructions Printed Discharge Instructions: DI for Laceration Repair, DI for Laceration Repair of the Scalp, DI for Hematoma (Bruise), DI for Shoulder Pain, DI for Abrasion Additional Instructions: your CT head and C spine negative for bleed or injuries. there are degenerative changes in the cervical bones. Xrays with degenerative changes, no fractures and good alignment. fall prevention safety provided. PCP followup or return to the ED for staple removal in 7 days return precautions discussed - such as infection, redness, swelling, fever, discharge, purulence or pain. removal of precious in 7 days. monitor for infection, clean with soap and water after 24 hours, keep covered and clean, skin tear with wound care instructions, topical abx as needed. keep clean and dry and covered. the minor skin tear on the arm will heal on its own, cover with bandaid FALL PREVENTION AT HOME WHAT YOU NEED TO KNOW There are many different factors that can increase your risk of falls. Falls can happen any time, but the majority of them occur in the home. Fall prevention includes ways to make your home and other areas safer. It also includes ways you can move more carefully to prevent a fall. Health conditions that cause changes in your blood pressure, vision, or muscle strength and coordination may increase your risk for falls. Medicines, including anesthesia, may increase your risk for falls if they make you dizzy, weak, or sleepy. FALL PREVENTION TIPS Stand or sit up slowly. This may help you keep your balance and prevent falls. Do not walk and talk at the same time. Concentrate on the task of walking and continue the conversation after you've reached a safe place. Wear shoes that fit well and have soles that [employer]. Wear shoes both inside and outside. Use slippers with good [employer]. Avoid shoes with high heels. Use assistive devices as directed. Your healthcare provider may suggest that you use a cane or walker to help you keep you balance. Be sure you have adequate lighting throughout your house. Keep paths clear. Remove books, shoes and other objects from walkways and stairs. Keep cords for telephones and lamps out of the way so you dont need to walk over them. Remove small rugs or secure them with double-sided tape. This will prevent you from tripping. Use a nightlight when getting out of bed at night. Stay active to maintain overall strength and endurance. Know your limitations. If there is a task you can not complete with ease, do not risk a fall by trying to complete it. Call 911 or have someone else call if: You have fallen and are unconscious You have fallen and cannot move part of your body Contact your healthcare provider if: You have fallen and have pain or a headache You have questions or concerns about your condition or care. - Post Discharge Activity
== END 2018-05-24 16:18 | disposition home or self-care (01) ==
LOC: JER 11:31
PROC: 0HQ0XZZ Repair Scalp Skin, External Approach (ICD-10-PCS; principal; 2018-05-24)
DX: S01.01XA Laceration without foreign body of scalp, initial encounter (principal); S00.03XA Contusion of scalp, initial encounter; W18.39XA Other fall on same level, initial encounter; Z91.81 History of falling; Y93.89 Activity, other specified; Y92.018 Other place in single-family (private) house as the place of occurrence of the external cause; Y99.8 Other external cause status; I10 Essential (primary) hypertension; E78.00 Pure hypercholesterolemia, unspecified; K21.9 Gastro-esophageal reflux disease without esophagitis; G20 Parkinson's disease; F02.80 Dementia in other diseases classified elsewhere, unspecified severity, without behavioral disturbance, psychotic disturbance, mood disturbance, and anxiety; R26.89 Other abnormalities of gait and mobility; Z99.89 Dependence on other enabling machines and devices; N40.0 Benign prostatic hyperplasia without lower urinary tract symptoms; M48.00 Spinal stenosis, site unspecified; Z88.0 Allergy status to penicillin
CPT/HCPCS: 70450-TC; 71046-TC-FY; 72125-TC; 72170-TC-FY; 73030-TC-LT-FY; 73030-TC-RT-FY; 99281-25

== ENCOUNTER 2018-06-01 10:27 | Emergency (ER) | payer BC ==
[2018-06-01 10:45] VITALS: BP 134/62; PULSE 85; TEMP 97.6; BMI 25.0
[2018-06-01] MEDS ORDERED: BACITRACIN 15 GM TUBE TOPICAL OINTMENT TP ONE (11:10)
[2018-06-01] MEDS ORDERED: BACITRACIN 15 GM TUBE TOPICAL OINTMENT ONE (11:10)
--- NOTE | 2018-06-01 11:12 | PDOC ---
Suture Removal/Wound Check HPI - History of Present Illness Chief Complaint: Suture/Staple Removal(Here) Stated Complaint: SUTURE REMOVAL, SUTURED HERE Time Seen by Provider: 06/01/18 11:02 History Source: Yes: Patient Exam Limitations: Yes: Clinical Condition Treated at: [facility] ED - Previous ED Treatment Type of procedure performed on last visit: Yes: Laceration Repair Tetanus Immunization: Yes: Up to Date Antibiotics Prescribed: No - Onset of Previous Treatment Date of Occurence: 05/25/18 Past History - Past Medical History Allergies/Adverse Reactions: Allergies Allergy/AdvReac Type Severity Reaction Status Date / Time Penicillins Allergy Severe Swelling Verified 05/24/18 11:55 Home Medications: Ambulatory Orders Tamsulosin HCl 0.4 mg PO DAILY 01/03/15 Terazosin HCl 5 mg PO DAILY 01/03/15 Valsartan 320 mg PO DAILY 09/23/15 Acetaminophen [Tylenol .Regular Strength -] 650 mg PO Q6H PRN #0 tablet Aspirin Coated [Ecotrin -] 81 mg PO DAILY #30 tablet.ec 07/12/16 Carbidopa/Levodopa 25/100 [Sinemet 25/100 -] 1.5 each PO TID tablet 07/12/16 Bupropion HCl [Bupropion Xl] 150 mg PO DAILY 09/28/16 Pramipexole Di-HCl [Pramipexole ER] 0.125 mg PO HS 09/28/16 Anemia: No Asthma: No Cancer: No Cardiac Disorders: No CVA: No COPD: No CHF: No Dementia: No Diabetes: No GI Disorders: Yes (GERD) Disorders: Yes (BPH) HTN: Yes Hypercholesterolemia: No Liver Disease: No Seizures: No Thyroid Disease: No - Surgical History Abdominal Surgery: Yes (HERNIA) Appendectomy: No Cardiac Surgery: No Cholecystectomy: Yes Lung Surgery: No Neurologic Surgery: No Orthopedic Surgery: No - Immunization History Immunization Up to Date: No - Suicide/Smoking/Psychosocial Hx Smoking History: Never smoked Have you smoked in the past 12 months: No If you are a former smoker, when did you quit?: 15 years ago Information on smoking cessation initiated: No Hx Alcohol Use: No Drug/Substance Use Hx: No Substance Use Type: None Hx Substance Use Treatment: No Suture Removal/Wound Check PE - Physical Exam Laceration/Wound Check Symptoms: reports: None, Improved. denies: Fever, Chills , Redness, Discharge, Bleeding Current Severity Level: None Maximum Severity Level: None Location of Laceration/Wound: left: Head (left side of scalp) Pain Radiation: None *Review of Systems - Review of Systems Able to Perform ROS?: Yes Comments:: 06/01/18 11:14 Patient history of comorbidities present for wound check and staple removal status post fall a week ago hitting head and requiring staple placement. CAT scan of head done at last visit showed no intracranial bleeding. Patient denies dizziness, blurry vision, headache, nausea or vomiting today. Patient's denies loss of consciousness after the fall. Patient denies any symptoms now. Constitutional: No: Fever HEENTM: No: Eye Pain, Blurred Vision, Recent change in vision, Double Vision Respiratory: No: Symptoms reported Cardiac (ROS): No: Symptoms Reported ABD/GI: No: Symptoms Reported, Nausea, Vomiting Neurological: No: Headache, Dizziness All Other Systems: Reviewed and Negative *Physical Exam - Vital Signs Last Vital Signs Temp Pulse Resp BP Pulse Ox 97.6 F 85 16 134/62 99 06/01/18 10:33 06/01/18 10:33 06/01/18 10:33 06/01/18 10:33 06/01/18 10:33 - Physical Exam Comments: 06/01/18 11:16 GENERAL: Well developed, well nourished. Awake and alert. No acute distress. HEENT: Well-healing 5 cm linear laceration to left side of scalp with [address] No erythema or drainage from wound site. No wound dehiscence. No evidence of infection to laceration site. PERRLA, EOMI. No conjunctival pallor. Sclera are non-icteric. Moist mucous membranes. Oropharynx is clear. NECK: Supple. Full ROM. CARDIOVASCULAR: Regular rate and rhythm. No murmurs, rubs, or gallops. Distal pulses are 2+ and symmetric. PULMONARY: No evidence of respiratory distress. Lungs clear to auscultation bilaterally. No wheezing, rales or rhonchi. ABDOMINAL: Soft. Non-tender. Non-distended. No rebound or guarding. No organomegaly. Normoactive bowel sounds. SKIN: Well-healing 5 cm linear laceration to left side of scalp with [address] No erythema or drainage from wound site. No wound dehiscence. No evidence of infection to laceration site NEUROLOGICAL: Alert, awake, appropriate. PSYCHIATRIC: Cooperative. Good eye contact. Appropriate mood General Appearance: Yes: Nourished, Appropriately Dressed. No: Apparent Distress Moderate Sedation - Procedure Monitoring Vital Signs: Procedure Monitoring Vital Signs Temperature 97.6 F 06/01/18 10:33 Pulse Rate 85 06/01/18 10:33 Respiratory Rate 16 06/01/18 10:33 Blood Pressure 134/62 06/01/18 10:33 O2 Sat by Pulse Oximetry (%) 99 06/01/18 10:33 Medical Decision Making - Medical Decision Making 06/01/18 11:18 Patient with history of comorbidities present for staple removal to scalp status post fall a week ago hitting head and requiring staple placement. Patient and denies posttrauma symptoms after discharge from last visit. Exam significant for 5 cm laceration with [address] No evidence of wound infection to site. No erythema wound dehiscence. 6 precious removed was staple remover without complications. Bacitracin applied to wound. Patient and educated on home wound care. Patient stable for discharge. *DC/Admit/Observation/Transfer Diagnosis at time of Disposition: Encounter for staple removal Head injury, acute Qualifiers: Encounter type: subsequent encounter Qualified Code(s): S09.90XD - Unspecified injury of head, subsequent encounter - Discharge Dispostion Disposition: HOME Condition at time of disposition: Stable Decision to Admit order: No - Referrals Referrals: Armand Temple MD [Primary Care Provider] - - Patient Instructions Printed Discharge Instructions: DI for Closed Head Injury, How to Care for a Surgical Wound-Precious Additional Instructions: Apply Neosporin or bacitracin to wound twice a day until healed. Follow-up with primary care as needed. - Post Discharge Activity
== END 2018-06-01 11:18 | disposition home or self-care (01) ==
LOC: JERFT 10:27
DX: Z48.817 Encounter for surgical aftercare following surgery on the skin and subcutaneous tissue (principal); Z48.02 Encounter for removal of sutures
CPT/HCPCS: 99281-25